=== PATIENT | male | born 1940 | race Caucasian/White ===

== ENCOUNTER 2019-07-16 19:28 | Observation (INO) | payer MEDICARE ==
[2019-07-16] MEDS ORDERED: Zofran 4 MG/2 ML VIAL IV ONE (19:57)
[2019-07-16] MEDS ORDERED: Sodium Chloride 0.9% 1000 ML 1,000 ML IV STA ×2 (19:57→22:29)
--- NOTE | 2019-07-16 19:57 | ERPHSYRPT ---
- History of Present Illness Time Seen by Provider: 07/16/19 19:35 Historian: patient, family Exam Limitations: no limitations Patient Subjective Stated Complaint: pt states he has been having diarrhea since last night. states he has been very weak tonight. Triage Nursing Assessment: pt alert and oreinted, answers questions approp. respirations nonlaboredw ith lungs cta. skin hot, warm and dry. pt transfers to strether with assist of 2, weak gait noted. bowel sounds present x4. abd soft and nontender. Physician History: 79 y/o white male presents with 24 hours of n/v/d. pt states several bouts of pure watery diarrhea every 2 hours for 24 hours. pt state he feels very weak. fell earlier today but did not injure anything. no other flulike sx. no cp, no soa. no sig abd pain. no other individuals with same sx. no well water or camping. no travel outside the . no antibiotic tx recently Timing/Duration: day(s) (1) Activities at Onset: none Quality: cramping (mild) Abdominal Pain Onset Location: generalized abdomen Pain Radiation: no radiation Severity of Pain-Max: mild Severity of Pain-Current: mild Modifying Factors: Improves With: vomiting Associated Symptoms: diarrhea, loss of appetite, nausea, vomiting, weakness Previous symptoms: no prior history Allergies/Adverse Reactions: No Known Drug Allergies Allergy (Verified 07/16/19 19:43) Home Medications: Triamterene/Hydrochlorothiazid [Triamterene-Hctz 37.5-25 mg Tb] 1 each PO DAILY 07/16/19 [History] Hx Tetanus, Diphtheria Vaccination/Date Given: Yes Hx Influenza Vaccination/Date Given: No Hx Pneumococcal Vaccination/Date Given: Yes Immunizations Up to Date: Yes - Review of Systems Constitutional: Weakness Eyes: No Symptoms Ears, Nose, & Throat: No Symptoms Respiratory: No Symptoms Cardiac: No Symptoms Abdominal/Gastrointestinal: Nausea, Vomiting, Diarrhea Genitourinary Symptoms: No Symptoms Musculoskeletal: No Symptoms Skin: No Symptoms Neurological: No Symptoms Psychological: No Symptoms Endocrine: No Symptoms Hematologic/Lymphatic: No Symptoms Immunological/Allergic: No Symptoms All Other Systems: Reviewed and Negative - Past Medical History Pertinent Past Medical History: Yes Neurological History: No Pertinent History ENT History: No Pertinent History Cardiac History: Hypertension Respiratory History: No Pertinent History Endocrine Medical History: No Pertinent History Musculoskeletal History: Arthritis GI Medical History: No Pertinent History History: No Pertinent History Psycho-Social History: No Pertinent History Male Reproductive Disorders: No Pertinent History - Past Surgical History Past Surgical History: No Neuro Surgical History: No Pertinent History Cardiac: No Pertinent History Respiratory: No Pertinent History Gastrointestinal: No Pertinent History Genitourinary: No Pertinent History Musculoskeletal: No Pertinent History Male Surgical History: No Pertinent History - Social History Smoking Status: Former smoker Exposure to second hand smoke: No Drug Use: none Patient Lives Alone: No - Nursing Vital Signs Nursing Vital Signs: Initial Vital Signs Temperature 100.2 F 07/16/19 19:31 Pulse Rate 112 H 07/16/19 19:31 Respiratory Rate 18 07/16/19 19:31 Blood Pressure 145/90 07/16/19 19:31 O2 Sat by Pulse Oximetry 92 L 07/16/19 19:31 Pain Scale Pain Intensity 0 - Physical Exam General Appearance: mild distress, alert, anxiety Eye Exam: PERRL/EOMI, eyes nml inspection Ears, Nose, Throat Exam: normal ENT inspection, moist mucous membranes Neck Exam: normal inspection, non-tender, supple, full range of motion Respiratory Exam: normal breath sounds, lungs clear, airway intact, No chest tenderness, No respiratory distress Cardiovascular Exam: tachycardia (mild) Gastrointestinal/Abdomen Exam: soft, normal bowel sounds, No tenderness, No guarding Rectal Exam: not done Back Exam: normal inspection, normal range of motion, No CVA tenderness, No vertebral tenderness Extremity Exam: normal inspection, normal range of motion, pelvis stable Neurologic Exam: alert, oriented x 3, cooperative, 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, nml cerebellar function, nml station & gait Skin Exam: normal color, warm, dry Lymphatic Exam: No adenopathy SpO2 Interpretation: borderline oxygenation SpO2: 92 - Course Nursing assessment & vital signs reviewed: Yes Ordered Tests: Active Orders 24 hr Category Date Time Status IV Insertion STAT Care 07/16/19 19:57 Active ABDOMEN AND PELVIS W/0 CONTRAS [CT] Stat Exams 07/16/19 19:57 Taken CHEST 1 VIEW (PORTABLE) Stat Exams 07/16/19 23:44 Ordered AMYLASE Stat Lab 07/16/19 20:00 Completed BLOOD CULTURE Stat Lab 07/16/19 21:16 Received CBC W DIFF Stat Lab 07/16/19 20:00 Completed CMP Stat Lab 07/16/19 20:00 Completed LIPASE Stat Lab 07/16/19 20:00 Completed Lactic Acid Stat Lab 07/16/19 20:15 Completed UA W/RFX UR CULTURE Stat Lab 07/17/19 00:00 Completed Medication Summary Generic Name Dose Route Start Last Admin Trade Name Jenni PRN Reason Stop Dose Admin Sodium Chloride 1,000 mls @ 100 mls/hr 07/17/19 00:15 07/17/19 00:16 Sodium Chloride 0.9% 1000 Ml IV 08/16/19 00:14 100 mls/hr .Q10H LEIDY Administration Discontinued Medications Generic Name Dose Route Start Last Admin Trade Name Jenni PRN Reason Stop Dose Admin Acetaminophen 650 mg 07/16/19 23:42 07/16/19 23:45 Tylenol 325 Mg PO 07/16/19 23:43 650 mg STAT STA Administration Acetaminophen Confirm 07/16/19 23:43 Tylenol 325 Mg Administered 07/16/19 23:44 Dose 650 mg .ROUTE .STK-MED ONE Sodium Chloride 1,000 mls @ 999 mls/hr 07/16/19 19:57 07/16/19 23:13 Sodium Chloride 0.9% 1000 Ml IV 07/16/19 20:57 Infused .Q1H1M STA Infusion Sodium Chloride Confirm 07/16/19 20:02 Sodium Chloride 0.9% 1000 Ml Administered 07/16/19 20:03 Dose 1,000 mls @ ud .ROUTE .STK-MED ONE Sodium Chloride 1,000 mls @ 999 mls/hr 07/16/19 22:29 07/17/19 00:22 Sodium Chloride 0.9% 1000 Ml IV 07/16/19 23:29 Infused .Q1H1M STA Infusion Sodium Chloride Confirm 07/16/19 22:30 Sodium Chloride 0.9% 1000 Ml Administered 07/16/19 22:31 Dose 1,000 mls @ ud .ROUTE .STK-MED ONE Ondansetron HCl 4 mg 07/16/19 19:57 07/16/19 20:05 Zofran 4 Mg/2 Ml Vial IV 07/16/19 19:58 4 mg STAT ONE Administration Ondansetron HCl Confirm 07/16/19 20:01 Zofran 4 Mg/2 Ml Vial Administered 07/16/19 20:02 Dose 4 mg .ROUTE .STK-MED ONE Lab/Rad Data: Laboratory Result Diagrams 07/16/19 20:00 07/16/19 20:00 Laboratory Results 07/17/19 07/16/19 07/16/19 Range/Units 00:00 21:16 20:15 WBC (4.0-10.5) K/mm3 RBC (4.1-5.6) M/mm3 Hgb (12.5-18.0) gm/dl Hct (42-50) % MCV (78-100) fl MCH (26-32) pg MCHC (32-36) g/dl RDW (11.5-14.0) % Plt Count (150-450) K/mm3 MPV (6-9.5) fl Gran % (36.0-66.0) % Eos # (Auto) (0-0.5) Absolute Lymphs (auto) (1.0-4.6) Absolute Monos (auto) (0.0-1.3) Lymphocytes % (24.0-44.0) % Monocytes % (0.0-12.0) % Eosinophils % (0.00-5.0) % Basophils % (0.0-0.4) % Absolute Granulocytes (1.4-6.9) Basophils # (0-0.4) Sodium (137-145) mmol/L Potassium (3.5-5.1) mmol/L Chloride (98-107) mmol/L Carbon Dioxide (22-30) mmol/L Anion Gap (5-15) MEQ/L BUN (9-20) mg/dL Creatinine (0.66-1.25) mg/dL Estimated GFR ML/MIN Glucose (74-106) mg/dL Lactic Acid 1.7 (0.4-2.0) Calcium (8.4-10.2) mg/dL Total Bilirubin (0.2-1.3) mg/dL AST (17-59) U/L ALT (0-50) U/L Alkaline Phosphatase (38-126) U/L Serum Total Protein (6.3-8.2) g/dL Albumin (3.5-5.0) g/dL Amylase (30-110) U/L Lipase (23-300) U/L Urine Color YELLOW (YELLOW) Urine Appearance CLEAR (CLEAR) Urine pH 5.0 (5-6) Ur Specific [place] 1.020 (1.005-1.025) Urine Protein NEGATIVE (Negative) Urine Ketones TRACE (NEGATIVE) Urine Blood NEGATIVE (0-5) Gustavo/ul Urine Nitrite NEGATIVE (NEGATIVE) Urine Bilirubin NEGATIVE (NEGATIVE) Urine Urobilinogen NEGATIVE (0-1) mg/dL Ur Leukocyte Esterase NEGATIVE (NEGATIVE) Urine WBC (Auto) NONE (0-5) /HPF Urine RBC (Auto) NONE (0-2) /HPF U Epithel Cells (Auto) NONE (FEW) /HPF Urine Bacteria (Auto) NONE (NEGATIVE) /HPF Urine Culture Reflexed NO (NO) Urine Glucose NEGATIVE (NEGATIVE) mg/dL Influenza Type A Ag NEGATIVE (NEGATIVE) Influenza Type B Ag NEGATIVE (NEGATIVE) RSV (PCR) NEGATIVE (Negative) 07/16/19 07/16/19 Range/Units 20:00 20:00 WBC 15.6 H (4.0-10.5) K/mm3 RBC 4.05 L (4.1-5.6) M/mm3 Hgb 13.4 (12.5-18.0) gm/dl Hct 39.7 L (42-50) % MCV 98.0 (78-100) fl MCH 33.0 H (26-32) pg MCHC 33.8 (32-36) g/dl RDW 12.6 (11.5-14.0) % Plt Count 214 (150-450) K/mm3 MPV 10.9 H (6-9.5) fl Gran % 91.0 H (36.0-66.0) % Eos # (Auto) 0.01 (0-0.5) Absolute Lymphs (auto) 0.69 L (1.0-4.6) Absolute Monos (auto) 0.68 (0.0-1.3) Lymphocytes % 4.4 L (24.0-44.0) % Monocytes % 4.4 (0.0-12.0) % Eosinophils % 0.1 (0.00-5.0) % Basophils % 0.1 (0.0-0.4) % Absolute Granulocytes 14.24 H (1.4-6.9) Basophils # 0.01 (0-0.4) Sodium 140 (137-145) mmol/L Potassium 3.6 (3.5-5.1) mmol/L Chloride 101 (98-107) mmol/L Carbon Dioxide 27 (22-30) mmol/L Anion Gap 15.5 H (5-15) MEQ/L BUN 24 H (9-20) mg/dL Creatinine 1.26 H (0.66-1.25) mg/dL Estimated GFR 58.8 ML/MIN Glucose 116 H (74-106) mg/dL Lactic Acid (0.4-2.0) Calcium 9.2 (8.4-10.2) mg/dL Total Bilirubin 0.50 (0.2-1.3) mg/dL AST 25 (17-59) U/L ALT 18 (0-50) U/L Alkaline Phosphatase 85 (38-126) U/L Serum Total Protein 7.6 (6.3-8.2) g/dL Albumin 4.2 (3.5-5.0) g/dL Amylase 68 (30-110) U/L Lipase 68 (23-300) U/L Urine Color (YELLOW) Urine Appearance (CLEAR) Urine pH (5-6) Ur Specific [place] (1.005-1.025) Urine Protein (Negative) Urine Ketones (NEGATIVE) Urine Blood (0-5) Gustavo/ul Urine Nitrite (NEGATIVE) Urine Bilirubin (NEGATIVE) Urine Urobilinogen (0-1) mg/dL Ur Leukocyte Esterase (NEGATIVE) Urine WBC (Auto) (0-5) /HPF Urine RBC (Auto) (0-2) /HPF U Epithel Cells (Auto) (FEW) /HPF Urine Bacteria (Auto) (NEGATIVE) /HPF Urine Culture Reflexed (NO) Urine Glucose (NEGATIVE) mg/dL Influenza Type A Ag (NEGATIVE) Influenza Type B Ag (NEGATIVE) RSV (PCR) (Negative) - Progress Progress: improved Progress Note: 07/17/19 00:46 cxr-no acute process Discussed with : Jass Counseled pt/family regarding: lab results, diagnosis, need for follow-up, rad results - Departure Departure Disposition: Observation Clinical Impression: Fever of unknown origin, Weakness, Vomiting and diarrhea Condition: Stable Critical Care Time: No
[2019-07-16] MEDS ORDERED: Zofran 4 MG/2 ML VIAL ONE (20:01)
[2019-07-16] MEDS ORDERED: Sodium Chloride 0.9% 1000 ML 1,000 ML ONE ×2 (20:02→22:30)
[2019-07-16 20:19] LABS: Absolute Neutrophil Ct (ANC) 14.24 (1.4-6.9); BASOPHIL % 0.1 % (0.0-0.4); Basophil (Absolute #) 0.01 (0-0.4); Eosinophil % 0.1 % (0.00-5.0); Eosinophil (Absolute #) 0.01 (0-0.5); Hematocrit 39.7 % (42-50); Hemoglobin 13.4 gm/dl (12.5-18.0); Lymphocyte (Absolute #) 0.69 (1.0-4.6); Lymphocytes % 4.4 % (24.0-44.0); Mean Corpuscular Hgb Concent. 33.8 g/dl (32-36); Mean Platelet Volume 10.9 fl (6-9.5); Monocyte (Absolute #) 0.68 (0.0-1.3); Monocytes % 4.4 % (0.0-12.0); Platelet Count 214 K/mm3 (150-450); Red Blood Count 4.05 M/mm3 (4.1-5.6); Red Cell Distribution Width 12.6 % (11.5-14.0); White Blood Count 15.6 K/mm3 (4.0-10.5)
[2019-07-16 20:32] LABS: ALBUMIN 4.2 g/dL (3.5-5.0); ANION GAP 15.5 MEQ/L (5-15); BILIRUBIN,TOTAL 0.5 mg/dL (0.2-1.3); Calcium 9.2 mg/dL (8.4-10.2); Creatinine 1 1.26 mg/dL (0.66-1.25); Potassium 3.6 mmol/L (3.5-5.1); Total Protein 7.6 g/dL (6.3-8.2)
[2019-07-16 22:03] LABS: INFLUENZA A NEGATIVE (NEGATIVE); INFLUENZA B NEGATIVE (NEGATIVE); RESPIRATORY SYNCTIAL VIRUS NEGATIVE (Negative)
[2019-07-16] MEDS ORDERED: TYLENOL 325 MG PO STA (23:42)
[2019-07-16] MEDS ORDERED: TYLENOL 325 MG ONE (23:43)
[2019-07-17] MEDS ORDERED: Sodium Chloride 0.9% 1000 ML 1,000 ML ONE (00:14)
[2019-07-17] MEDS ORDERED: Sodium Chloride 0.9% 1000 ML 1,000 ML IV SCH (00:15)
[2019-07-17 00:31] LABS: Appearance CLEAR (CLEAR); Bilirubin NEGATIVE (NEGATIVE); Blood NEGATIVE Ery/ul (0-5); Glucose NEGATIVE (NEGATIVE); Ketones TRACE (NEGATIVE); Leukocyte Esterase NEGATIVE (NEGATIVE); Nitrite NEGATIVE (NEGATIVE); Protein,Urine Dip NEGATIVE (Negative); Urobilinogen NEGATIVE mg/dL (0-1)
[2019-07-17] MEDS ORDERED: MOTRIN 400 MG PO ONE (00:48)
[2019-07-17] MEDS ORDERED: Sodium Chloride 0.9% 100 ML IVPB 100 ML IV ONE (01:00)
[2019-07-17] MEDS ORDERED: Merrem 1 GM IV ONE (01:00)
[2019-07-17] MEDS ORDERED: MOTRIN 400 MG ONE (01:00)
[2019-07-17] MEDS ORDERED: Merrem 1 GM 1 G in Sodium Chloride 100ML MINI-BAG PLUS 100 ML IV STA (01:29)
[2019-07-17] MEDS ORDERED: Zofran 4 MG/2 ML VIAL IV PRN (01:29)
[2019-07-17] MEDS ORDERED: TYLENOL 325 MG PO PRN (01:29)
[2019-07-17 04:04] LABS: Adenovirus F 40/41 NEGATIVE (NEGATIVE); Astrovirus NEGATIVE (NEGATIVE); C. Difficile Organism NEGATIVE (NEGATIVE); Campylobacter POSITIVE (NEGATIVE); Cryptosporidium NEGATIVE (NEGATIVE); Cyclospora cayentanensis NEGATIVE (NEGATIVE); Entamoeaba histolytica NEGATIVE (NEGATIVE); Enteroaggregative E.coli NEGATIVE (NEGATIVE); Enteropathogenic E.coli NEGATIVE (NEGATIVE); Enterotoxigenic E.coli NEGATIVE (NEGATIVE); Giardia lamblia NEGATIVE (NEGATIVE); Norovirus GI/GII NEGATIVE (NEGATIVE); Plesiomonas shigelloides NEGATIVE (NEGATIVE); Rotavirus A NEGATIVE (NEGATIVE); Salmonella NEGATIVE (NEGATIVE); Sapovirus NEGATIVE (NEGATIVE); Shiga-like toxin prod.E.coli NEGATIVE (NEGATIVE); Vibrio NEGATIVE (NEGATIVE); Vibrio cholerae NEGATIVE (NEGATIVE); Yersinia enterocolitica NEGATIVE (NEGATIVE)
[2019-07-17 04:32] LABS: Absolute Neutrophil Ct (ANC) 10.43 (1.4-6.9); BASOPHIL % 0.1 % (0.0-0.4); Basophil (Absolute #) 0.01 (0-0.4); Eosinophil (Absolute #) 0 (0-0.5); Hematocrit 35.3 % (42-50); Lymphocyte (Absolute #) 1.01 (1.0-4.6); Lymphocytes % 8.5 % (24.0-44.0); Mean Cell Volume 99.4 fl (78-100); Mean Corpuscular Hemoglobin 33.8 pg (26-32); Mean Platelet Volume 10.4 fl (6-9.5); Monocyte (Absolute #) 0.48 (0.0-1.3); Neutrophil % 87.4 % (36.0-66.0); Platelet Count 174 K/mm3 (150-450); Red Blood Count 3.55 M/mm3 (4.1-5.6); Red Cell Distribution Width 12.8 % (11.5-14.0); White Blood Count 11.9 K/mm3 (4.0-10.5)
[2019-07-17 04:44] LABS: ANION GAP 11.9 MEQ/L (5-15); BLOOD UREA NITROGEN 19 mg/dL (9-20); CHLORIDE 104 mmol/L (98-107); Calcium 8.2 mg/dL (8.4-10.2); Carbon Dioxide 25 mmol/L (22-30); Creatinine 1 1.06 mg/dL (0.66-1.25); Glucose 96 mg/dL (74-106); Potassium 3.3 mmol/L (3.5-5.1); SODIUM 138 mmol/L (137-145)
[2019-07-17] MEDS ORDERED: MERREM 500MG 500 MG in Sodium Chloride 100ML MINI-BAG PLUS 100 ML IV SCH (06:00)
--- NOTE | 2019-07-17 08:43 | XRAY ---
Indication: Abdomen pain, fever, nausea, vomiting, and diarrhea. Multiple contiguous axial images obtained through the abdomen and pelvis without contrast as ordered. Comparison: None Lung bases demonstrates bibasilar atelectasis/scarring with left hemidiaphragm elevation. No infiltrate or effusion. Heart is not enlarged. Noncontrasted stomach and bowel loops appear nonobstructed. Normal appendix. Mild scattered descending and sigmoid diverticulosis. No free fluid/air. Mildly enlarged prostate gland impresses on the base of the urinary bladder. Remaining liver, gallbladder, pancreas, spleen, adrenal glands, kidneys, ureters, and bladder appear unremarkable for noncontrast exam. Mild scattered aortoiliac calcifications without AAA. 9 mm round left mid abdomen benign appearing calcification probably calcified granuloma. Osseous structures demonstrates osteopenia, moderate/advanced multilevel degenerative spondylosis, minimal remote appearing T12-L2 anterior wedging, double curvature thoracolumbar scoliosis, and mild degenerative changes of both hips. Small fatty left inguinal hernia. Impression: 1. Colonic diverticulosis without diverticulitis, enlarged prostate gland, small fatty left inguinal hernia, and chronic bony findings. 2. Remaining CT abdomen/pelvis without contrast exam is negative. CT DI 23.06
--- NOTE | 2019-07-17 08:45 | XRAY ---
Indication: Abdomen pain, nausea, vomiting, diarrhea, and fever. Comparison: None Portable apical lordotic chest mildly underinflated with CT proven left base atelectasis/scarring. Remaining lungs clear. Heart is not enlarged for AP portable technique. Bony thorax demonstrate osteopenia, mild scoliosis, and moderate/advanced degenerative changes including both shoulders. Impression: Nonacute chest with chronic features.
--- NOTE | 2019-07-17 08:46 | PCM.HP ---
History of Present Illness - Chief Complaint Chief Complaint: Fever of unknown origin History of Present Illness: is a 79 year old male pt of the DC who was admitted through the ER with about 24 hours of diarrhea. Vomited a few times. Subjective fever at home. In the ER his temp was up to 101.3. His WBC were 15.6. He was admitted on IV meropenem. He did have decreased urination at home. This morning he is feeling better. Has had some stools here. He did have one dark tarry stool this morning. Would like to eat something. - Review of Systems Constitutional: Fever, Weakness Abdominal/Gastrointestinal: Nausea, Vomiting, Diarrhea, Melena, Appetite Changes , No Abdominal Pain Psychological: No Anxiety, No Depression, No Suicidal Ideations, No Homicidal Ideations All Other Systems: Reviewed and Negative Medications & Allergies Home Medications: Home Medication List Triamterene/Hydrochlorothiazid [Triamterene-Hctz 37.5-25 mg Tb] 1 each PO DAILY 07/16/19 [History Confirmed 07/16/19] Allergies/Adverse Reactions: Allergies Allergy/AdvReac Type Severity Reaction Status Date / Time No Known Drug Allergies Allergy Verified 07/16/19 19:43 - Past Medical History Past Medical History: Yes Neurological History: No Pertinent History ENT History: No Pertinent History Cardiac History: Hypertension Respiratory History: No Pertinent History Endocrine Medical History: No Pertinent History Musculoskelatal History: Arthritis GI Medical History: No Pertinent History History: No Pertinent History Pyscho-Social History: No Pertinent History Male Reproductive Disorders: No Pertinent History - Past Surgical History Past Surgical History: No Neuro Surgical History: No Pertinent History Cardiac History: No Pertinent History Respiratory Surgery: No Pertinent History GI Surgical History: No Pertinent History Genitourinary Surgical Hx: No Pertinent History Musculskeletal Surgical Hx: No Pertinent History Male Surgical History: No Pertinent History - Social History Smoking Status: Former smoker Exposure to second hand smoke: No Alcohol: None Drug Use: none - Physical Exam Vital Signs: Vital Signs - 24 hr Temp Pulse Resp BP Pulse Ox 07/17/19 07:20 98.1 F 70 20 118/64 94 L 07/17/19 04:00 99.3 F 90 20 114/55 95 07/17/19 02:26 98.7 F 86 18 114/58 96 10/18/19 01:25 96 H 16 106/61 95 07/17/19 00:56 92 L 07/17/19 00:37 101.3 F 96 H 16 114/63 94 L 07/16/19 23:00 72 18 140/62 95 07/16/19 21:40 95 H 92 L 07/16/19 20:56 106 H 18 127/83 94 L 07/16/19 19:31 100.2 F 112 H 18 145/90 92 L Oxygen-Last 24 hours O2 Percentage 2 Liters = 28% O2 Percentage 2 Liters = 28% O2 Percentage 2 Liters = 28% Oxygen Flowrate (L/min)-RT 2 Oxygen Flowrate (L/min)-RT 2 General Appearance: no apparent distress, alert, obese Neurologic Exam: oriented x 3, cooperative Eye Exam: eyes nml inspection Ears, Nose, Throat Exam: moist mucous membranes Neck Exam: normal inspection, non-tender, No lymphadenopathy Respiratory Exam: normal breath sounds, lungs clear, No crackles/rales, No rhonchi, No wheezing Cardiovascular Exam: regular rate/rhythm, normal heart sounds, murmur (III/ sys murmur, best heard at R sternal border) Gastrointestinal/Abdomen Exam: soft, No normal bowel sounds (hyperactive), No tenderness, No distention, No mass, No guarding, No rebound Extremity Exam: normal inspection, No pedal edema, No swelling Skin Exam: normal color, warm, dry, No rash Results - Labs Lab/Micro Results: Lab Results-Last 24 Hours 07/16/19 07/16/19 07/16/19 Range/Units 20:00 20:00 20:15 WBC 15.6 H (4.0-10.5) K/mm3 RBC 4.05 L (4.1-5.6) M/mm3 Hgb 13.4 (12.5-18.0) gm/dl Hct 39.7 L (42-50) % MCV 98.0 (78-100) fl MCH 33.0 H (26-32) pg MCHC 33.8 (32-36) g/dl RDW 12.6 (11.5-14.0) % Plt Count 214 (150-450) K/mm3 MPV 10.9 H (6-9.5) fl Gran % 91.0 H (36.0-66.0) % Eos # (Auto) 0.01 (0-0.5) Absolute Lymphs (auto) 0.69 L (1.0-4.6) Absolute Monos (auto) 0.68 (0.0-1.3) Lymphocytes % 4.4 L (24.0-44.0) % Monocytes % 4.4 (0.0-12.0) % Eosinophils % 0.1 (0.00-5.0) % Basophils % 0.1 (0.0-0.4) % Absolute Granulocytes 14.24 H (1.4-6.9) Basophils # 0.01 (0-0.4) Sodium 140 (137-145) mmol/L Potassium 3.6 (3.5-5.1) mmol/L Chloride 101 (98-107) mmol/L Carbon Dioxide 27 (22-30) mmol/L Anion Gap 15.5 H (5-15) MEQ/L BUN 24 H (9-20) mg/dL Creatinine 1.26 H (0.66-1.25) mg/dL Estimated GFR 58.8 ML/MIN Glucose 116 H (74-106) mg/dL Lactic Acid 1.7 (0.4-2.0) Calcium 9.2 (8.4-10.2) mg/dL Total Bilirubin 0.50 (0.2-1.3) mg/dL AST 25 (17-59) U/L ALT 18 (0-50) U/L Alkaline Phosphatase 85 (38-126) U/L Serum Total Protein 7.6 (6.3-8.2) g/dL Albumin 4.2 (3.5-5.0) g/dL Amylase 68 (30-110) U/L Lipase 68 (23-300) U/L Urine Color (YELLOW) Urine Appearance (CLEAR) Urine pH (5-6) Ur Specific [place] (1.005-1.025) Urine Protein (Negative) Urine Ketones (NEGATIVE) Urine Blood (0-5) Gustavo/ul Urine Nitrite (NEGATIVE) Urine Bilirubin (NEGATIVE) Urine Urobilinogen (0-1) mg/dL Ur Leukocyte Esterase (NEGATIVE) Urine WBC (Auto) (0-5) /HPF Urine RBC (Auto) (0-2) /HPF U Epithel Cells (Auto) (FEW) /HPF Urine Bacteria (Auto) (NEGATIVE) /HPF Urine Culture Reflexed (NO) Urine Glucose (NEGATIVE) mg/dL Stool Occult Bld Scrn (NEGATIVE) Stl C. cayetanensis PCR (NEGATIVE) Stl Adenov F 40/41 PCR (NEGATIVE) Stool Astrovirus (PCR) (NEGATIVE) Stool Cryptosporidium PCR (NEGATIVE) Stool EPEC (PCR) (NEGATIVE) Stool EAEC (PCR) (NEGATIVE) Stl E. histolytica PCR (NEGATIVE) Stl P. shigelloides PCR (NEGATIVE) Stool Sapovirus (PCR) (NEGATIVE) St Y.enterocolitica PCR (NEGATIVE) Stool Vibrio (PCR) (NEGATIVE) Stl Vibrio cholerae PCR (NEGATIVE) Stl Norovirus GI/GII PCR (NEGATIVE) Campylobacter (PCR) (NEGATIVE) C. difficile (PCR) (NEGATIVE) Enterotoxigenic E. coli (NEGATIVE) E.coli Shiga Toxins (NEGATIVE) Giardia lamblia (NEGATIVE) Influenza Type A Ag (NEGATIVE) Influenza Type B Ag (NEGATIVE) RSV (PCR) (Negative) Rotavirus A (PCR) (NEGATIVE) Salmonella (PCR) (NEGATIVE) Shigella (PCR) (NEGATIVE) 07/16/19 07/17/19 07/17/19 Range/Units 21:16 00:00 00:00 WBC (4.0-10.5) K/mm3 RBC (4.1-5.6) M/mm3 Hgb (12.5-18.0) gm/dl Hct (42-50) % MCV (78-100) fl MCH (26-32) pg MCHC (32-36) g/dl RDW (11.5-14.0) % Plt Count (150-450) K/mm3 MPV (6-9.5) fl Gran % (36.0-66.0) % Eos # (Auto) (0-0.5) Absolute Lymphs (auto) (1.0-4.6) Absolute Monos (auto) (0.0-1.3) Lymphocytes % (24.0-44.0) % Monocytes % (0.0-12.0) % Eosinophils % (0.00-5.0) % Basophils % (0.0-0.4) % Absolute Granulocytes (1.4-6.9) Basophils # (0-0.4) Sodium (137-145) mmol/L Potassium (3.5-5.1) mmol/L Chloride (98-107) mmol/L Carbon Dioxide (22-30) mmol/L Anion Gap (5-15) MEQ/L BUN (9-20) mg/dL Creatinine (0.66-1.25) mg/dL Estimated GFR ML/MIN Glucose (74-106) mg/dL Lactic Acid (0.4-2.0) Calcium (8.4-10.2) mg/dL Total Bilirubin (0.2-1.3) mg/dL AST (17-59) U/L ALT (0-50) U/L Alkaline Phosphatase (38-126) U/L Serum Total Protein (6.3-8.2) g/dL Albumin (3.5-5.0) g/dL Amylase (30-110) U/L Lipase (23-300) U/L Urine Color YELLOW (YELLOW) Urine Appearance CLEAR (CLEAR) Urine pH 5.0 (5-6) Ur Specific [place] 1.020 (1.005-1.025) Urine Protein NEGATIVE (Negative) Urine Ketones TRACE (NEGATIVE) Urine Blood NEGATIVE (0-5) Gustavo/ul Urine Nitrite NEGATIVE (NEGATIVE) Urine Bilirubin NEGATIVE (NEGATIVE) Urine Urobilinogen NEGATIVE (0-1) mg/dL Ur Leukocyte Esterase NEGATIVE (NEGATIVE) Urine WBC (Auto) NONE (0-5) /HPF Urine RBC (Auto) NONE (0-2) /HPF U Epithel Cells (Auto) NONE (FEW) /HPF Urine Bacteria (Auto) NONE (NEGATIVE) /HPF Urine Culture Reflexed NO (NO) Urine Glucose NEGATIVE (NEGATIVE) mg/dL Stool Occult Bld Scrn (NEGATIVE) Stl C. cayetanensis PCR NEGATIVE (NEGATIVE) Stl Adenov F 40/41 PCR NEGATIVE (NEGATIVE) Stool Astrovirus (PCR) NEGATIVE (NEGATIVE) Stool Cryptosporidium PCR NEGATIVE (NEGATIVE) Stool EPEC (PCR) NEGATIVE (NEGATIVE) Stool EAEC (PCR) NEGATIVE (NEGATIVE) Stl E. histolytica PCR NEGATIVE (NEGATIVE) Stl P. shigelloides PCR NEGATIVE (NEGATIVE) Stool Sapovirus (PCR) NEGATIVE (NEGATIVE) St Y.enterocolitica PCR NEGATIVE (NEGATIVE) Stool Vibrio (PCR) NEGATIVE (NEGATIVE) Stl Vibrio cholerae PCR NEGATIVE (NEGATIVE) Stl Norovirus GI/GII PCR NEGATIVE (NEGATIVE) Campylobacter (PCR) POSITIVE A (NEGATIVE) C. difficile (PCR) NEGATIVE (NEGATIVE) Enterotoxigenic E. coli NEGATIVE (NEGATIVE) E.coli Shiga Toxins NEGATIVE (NEGATIVE) Giardia lamblia NEGATIVE (NEGATIVE) Influenza Type A Ag NEGATIVE (NEGATIVE) Influenza Type B Ag NEGATIVE (NEGATIVE) RSV (PCR) NEGATIVE (Negative) Rotavirus A (PCR) NEGATIVE (NEGATIVE) Salmonella (PCR) NEGATIVE (NEGATIVE) Shigella (PCR) NEGATIVE (NEGATIVE) 07/17/19 07/17/19 07/17/19 Range/Units 02:13 04:30 04:30 WBC 11.9 H (4.0-10.5) K/mm3 RBC 3.55 L (4.1-5.6) M/mm3 Hgb 12.0 L (12.5-18.0) gm/dl Hct 35.3 L (42-50) % MCV 99.4 (78-100) fl MCH 33.8 H (26-32) pg MCHC 34.0 (32-36) g/dl RDW 12.8 (11.5-14.0) % Plt Count 174 (150-450) K/mm3 MPV 10.4 H (6-9.5) fl Gran % 87.4 H (36.0-66.0) % Eos # (Auto) 0 (0-0.5) Absolute Lymphs (auto) 1.01 (1.0-4.6) Absolute Monos (auto) 0.48 (0.0-1.3) Lymphocytes % 8.5 L (24.0-44.0) % Monocytes % 4.0 (0.0-12.0) % Eosinophils % 0.0 (0.00-5.0) % Basophils % 0.1 (0.0-0.4) % Absolute Granulocytes 10.43 H (1.4-6.9) Basophils # 0.01 (0-0.4) Sodium 138 (137-145) mmol/L Potassium 3.3 L (3.5-5.1) mmol/L Chloride 104 (98-107) mmol/L Carbon Dioxide 25 (22-30) mmol/L Anion Gap 11.9 (5-15) MEQ/L BUN 19 (9-20) mg/dL Creatinine 1.06 (0.66-1.25) mg/dL Estimated GFR > 60.0 ML/MIN Glucose 96 (74-106) mg/dL Lactic Acid (0.4-2.0) Calcium 8.2 L (8.4-10.2) mg/dL Total Bilirubin (0.2-1.3) mg/dL AST (17-59) U/L ALT (0-50) U/L Alkaline Phosphatase (38-126) U/L Serum Total Protein (6.3-8.2) g/dL Albumin (3.5-5.0) g/dL Amylase (30-110) U/L Lipase (23-300) U/L Urine Color (YELLOW) Urine Appearance (CLEAR) Urine pH (5-6) Ur Specific [place] (1.005-1.025) Urine Protein (Negative) Urine Ketones (NEGATIVE) Urine Blood (0-5) Gustavo/ul Urine Nitrite (NEGATIVE) Urine Bilirubin (NEGATIVE) Urine Urobilinogen (0-1) mg/dL Ur Leukocyte Esterase (NEGATIVE) Urine WBC (Auto) (0-5) /HPF Urine RBC (Auto) (0-2) /HPF U Epithel Cells (Auto) (FEW) /HPF Urine Bacteria (Auto) (NEGATIVE) /HPF Urine Culture Reflexed (NO) Urine Glucose (NEGATIVE) mg/dL Stool Occult Bld Scrn NEGATIVE (NEGATIVE) Stl C. cayetanensis PCR (NEGATIVE) Stl Adenov F 40/41 PCR (NEGATIVE) Stool Astrovirus (PCR) (NEGATIVE) Stool Cryptosporidium PCR (NEGATIVE) Stool EPEC (PCR) (NEGATIVE) Stool EAEC (PCR) (NEGATIVE) Stl E. histolytica PCR (NEGATIVE) Stl P. shigelloides PCR (NEGATIVE) Stool Sapovirus (PCR) (NEGATIVE) St Y.enterocolitica PCR (NEGATIVE) Stool Vibrio (PCR) (NEGATIVE) Stl Vibrio cholerae PCR (NEGATIVE) Stl Norovirus GI/GII PCR (NEGATIVE) Campylobacter (PCR) (NEGATIVE) C. difficile (PCR) (NEGATIVE) Enterotoxigenic E. coli (NEGATIVE) E.coli Shiga Toxins (NEGATIVE) Giardia lamblia (NEGATIVE) Influenza Type A Ag (NEGATIVE) Influenza Type B Ag (NEGATIVE) RSV (PCR) (Negative) Rotavirus A (PCR) (NEGATIVE) Salmonella (PCR) (NEGATIVE) Shigella (PCR) (NEGATIVE) - Radiology Impressions Radiology Exams & Impressions: Radiology Procedures Category Date Time Status ABDOMEN AND PELVIS W/0 CONTRAS [CT] Stat Exams 07/16/19 19:57 Taken CHEST 1 VIEW (PORTABLE) Stat Exams 07/16/19 23:44 Taken Assessment/Plan (1) Campylobacter diarrhea Current Visit: Yes Status: Acute Assessment & Plan: Pt on IV meropenem. Try advancing diet. Some blood in the stool can be common , but advised pt to alert staff if the amount seemed large. Recheck labs in a.m. Home when afebrile >24 hours and tolerating po well. Code(s): A04.5 - CAMPYLOBACTER ENTERITIS
[2019-07-17] MEDS: Sodium Chloride 0.9% 1000 ML 1,000 ML IV SCH ×2 (08:47→20:34)
[2019-07-17] MEDS: MERREM 500MG 500 MG in Sodium Chloride 100ML MINI-BAG PLUS 100 ML IV SCH ×3 (09:19→21:23)
[2019-07-17] MEDS: Klor Con 10 MEQ PO SCH ×2 (09:19→20:34)
[2019-07-17] MEDS: Robaxin 500 MG PO SCH (21:21)
[2019-07-17] MEDS: ZOCOR 20MG PO SCH (21:22)
[2019-07-17] MEDS ORDERED: celeBREX 100 MG PO SCH (22:00)
[2019-07-18 05:44] LABS: Hemoglobin 11.9 gm/dl (12.5-18.0); Mean Cell Volume 100.3 fl (78-100); Mean Corpuscular Hemoglobin 33.1 pg (26-32); Mean Corpuscular Hgb Concent. 33.1 g/dl (32-36); Mean Platelet Volume 10.5 fl (6-9.5); Platelet Count 165 K/mm3 (150-450); Red Blood Count 3.59 M/mm3 (4.1-5.6); White Blood Count 9.5 K/mm3 (4.0-10.5)
[2019-07-18 06:05] LABS: ANION GAP 9.4 MEQ/L (5-15); BLOOD UREA NITROGEN 12 mg/dL (9-20); CHLORIDE 106 mmol/L (98-107); Calcium 8.5 mg/dL (8.4-10.2); Carbon Dioxide 29 mmol/L (22-30); Glucose 98 mg/dL (74-106); Potassium 3.7 mmol/L (3.5-5.1); SODIUM 140 mmol/L (137-145)
[2019-07-18] MEDS: MERREM 500MG 500 MG in Sodium Chloride 100ML MINI-BAG PLUS 100 ML IV SCH ×3 (06:25→21:13)
[2019-07-18] MEDS: celeBREX 100 MG PO SCH ×2 (08:31→18:22)
[2019-07-18] MEDS: Klor Con 10 MEQ PO SCH ×2 (09:21→21:11)
--- NOTE | 2019-07-18 09:59 | PCM.NOTE ---
Date and Time: 07/18/19957 Subjective Assessment: patient has persistent diarrhea but improving, no vomiting since arrival. he tolerated some bland diet this morning, overall feeling improved Objective Exam General Appearance: no apparent distress, alert Skin Exam: normal color, warm, dry Respiratory Exam: normal breath sounds, lungs clear, No respiratory distress Cardiovascular Exam: regular rate/rhythm, normal heart sounds Gastrointestinal/Abdomen Exam: soft, No tenderness, No mass Extremity Exam: normal inspection, normal range of motion OBJECTIVE DATA Vital Signs: Vital Signs - 24 hr Temp Pulse Resp BP Pulse Ox 07/18/19 07:14 98.6 F 81 18 170/80 96 07/18/19 04:00 98.7 F 86 16 136/72 96 07/18/19 00:00 97.8 F 80 16 144/73 93 L 07/17/19 20:00 100.0 F 96 H 16 148/67 94 L 07/17/19 15:34 98.3 F 78 20 124/68 95 07/17/19 12:20 98.2 F 73 18 129/66 94 L Pain Assessment - Last Documented Pain Intensity 0 Pain Scale Used 0-10 Pain Scale Intake and Output: Intake & Output 07/15/19 07/16/19 07/17/19 07/18/19 11:59 11:59 11:59 11:59 Intake Total 480 5617 Output Total 400 Balance 480 5217 Weight 92.2 kg 92 kg Lab Results: Lab Results-Last 24 Hours 07/18/19 07/18/19 Range/Units 05:25 05:25 WBC 9.5 (4.0-10.5) K/mm3 RBC 3.59 L (4.1-5.6) M/mm3 Hgb 11.9 L (12.5-18.0) gm/dl Hct 36.0 L (42-50) % MCV 100.3 H (78-100) fl MCH 33.1 H (26-32) pg MCHC 33.1 (32-36) g/dl RDW 13.0 (11.5-14.0) % Plt Count 165 (150-450) K/mm3 MPV 10.5 H (6-9.5) fl Sodium 140 (137-145) mmol/L Potassium 3.7 (3.5-5.1) mmol/L Chloride 106 (98-107) mmol/L Carbon Dioxide 29 (22-30) mmol/L Anion Gap 9.4 (5-15) MEQ/L BUN 12 (9-20) mg/dL Creatinine 0.90 (0.66-1.25) mg/dL Estimated GFR > 60.0 ML/MIN Glucose 98 (74-106) mg/dL Calcium 8.5 (8.4-10.2) mg/dL Radiology Exams: Radiology Procedures Category Date Time Status ABDOMEN AND PELVIS W/0 CONTRAS [CT] Stat Exams 07/16/19 19:57 Completed CHEST 1 VIEW (PORTABLE) Stat Exams 07/16/19 23:44 Completed Assessment/Plan (1) Campylobacter diarrhea Current Visit: Yes Status: Acute Assessment & Plan: on meropenem, clinically improving. h/h stable Code(s): A04.5 - CAMPYLOBACTER ENTERITIS (2) Vomiting and diarrhea Current Visit: Yes Status: Acute Code(s): R11.10 - VOMITING, UNSPECIFIED; R19.7 - DIARRHEA, UNSPECIFIED (3) Weakness Current Visit: Yes Status: Acute Code(s): R53.1 - WEAKNESS
[2019-07-18] MEDS ORDERED: Maxzide-25MG Tablet PO SCH (10:00)
[2019-07-18] MEDS: Sodium Chloride 0.9% 1000 ML 1,000 ML IV SCH (15:26)
[2019-07-18] MEDS: ZOCOR 20MG PO SCH (21:11)
[2019-07-18] MEDS: Robaxin 500 MG PO SCH (21:11)
[2019-07-19] MEDS: Sodium Chloride 0.9% 1000 ML 1,000 ML IV SCH (01:20)
[2019-07-19 06:05] LABS: Absolute Neutrophil Ct (ANC) 4.52 (1.4-6.9); BASOPHIL % 0.3 % (0.0-0.4); Basophil (Absolute #) 0.02 (0-0.4); Eosinophil % 2.5 % (0.00-5.0); Eosinophil (Absolute #) 0.18 (0-0.5); Hematocrit 34.9 % (42-50); Hemoglobin 11.7 gm/dl (12.5-18.0); Lymphocyte (Absolute #) 1.71 (1.0-4.6); Lymphocytes % 23.5 % (24.0-44.0); Mean Cell Volume 97.8 fl (78-100); Mean Corpuscular Hgb Concent. 33.5 g/dl (32-36); Monocyte (Absolute #) 0.86 (0.0-1.3); Monocytes % 11.8 % (0.0-12.0); Neutrophil % 61.9 % (36.0-66.0); Platelet Count 170 K/mm3 (150-450); Red Blood Count 3.57 M/mm3 (4.1-5.6); Red Cell Distribution Width 12.5 % (11.5-14.0); White Blood Count 7.3 K/mm3 (4.0-10.5)
[2019-07-19 06:09] LABS: Mean Corpuscular Hemoglobin 32.7 pg (26-32)
[2019-07-19] MEDS: MERREM 500MG 500 MG in Sodium Chloride 100ML MINI-BAG PLUS 100 ML IV SCH (06:10)
[2019-07-19 06:23] LABS: ALBUMIN 3.3 g/dL (3.5-5.0); ALKALINE PHOSPHATASE 65 U/L (38-126); ANION GAP 12.4 MEQ/L (5-15); BLOOD UREA NITROGEN 11 mg/dL (9-20); CHLORIDE 104 mmol/L (98-107); Calcium 8.6 mg/dL (8.4-10.2); Carbon Dioxide 26 mmol/L (22-30); Creatinine 1 0.76 mg/dL (0.66-1.25); Glucose 93 mg/dL (74-106); Potassium 3.7 mmol/L (3.5-5.1); SGOT/AST 28 U/L (17-59); SGPT/ALT 16 U/L (0-50); SODIUM 139 mmol/L (137-145); Total Protein 6.3 g/dL (6.3-8.2)
[2019-07-19] MEDS: celeBREX 100 MG PO SCH (07:40)
[2019-07-19 07:42] VITALS: BP 147/72; PULSE 78; O2SAT 94
--- NOTE | 2019-07-19 08:36 | PCM.DS ---
Discharge Summary Date of Admission: 07/17/19 01:27 Admitting Physician: MARY BARBOSA Primary Care Provider: MARY BARBOSA Allergies Allergies No Known Drug Allergies Allergy (Verified 07/16/19 19:43) Hospital Summary - Hospital Course Hospital Course: patient was admitted with vomiting, diarrhea and weakness with fever. found to have campylobacter in stool specimen, was on meropenem. symptoms have resolved, he is tolerating po and no fever and vomiting and diarrhea have resolved. - Vitals & Intake/Output Vital Signs: Vital Signs Temperature 98.9 F 07/19/19 07:41 Pulse Rate 78 07/19/19 07:41 Respiratory Rate 18 07/19/19 07:41 Blood Pressure 147/72 07/19/19 07:41 O2 Sat by Pulse Oximetry 94 L 07/19/19 07:41 Oxygen-Last Documented O2 Percentage 2 Liters = 28% Intake & Output: Intake & Output 07/16/19 07/17/19 07/18/19 07/19/19 11:59 11:59 11:59 11:59 Intake Total 480 5610 2652 Output Total 400 Balance 480 5217 2652 Weight 92.2 kg 92 kg 91.8 kg - Lab Result Diagrams: 07/19/19 05:20 07/19/19 05:20 Lab Results-Last 24 Hrs: Lab Results-Last 24 Hours 07/19/19 07/19/19 Range/Units 05:20 05:20 WBC 7.3 (4.0-10.5) K/mm3 RBC 3.57 L (4.1-5.6) M/mm3 Hgb 11.7 L (12.5-18.0) gm/dl Hct 34.9 L (42-50) % MCV 97.8 (78-100) fl MCH 32.7 H (26-32) pg MCHC 33.5 (32-36) g/dl RDW 12.5 (11.5-14.0) % Plt Count 170 (150-450) K/mm3 MPV 11.0 H (6-9.5) fl Gran % 61.9 (36.0-66.0) % Eos # (Auto) 0.18 (0-0.5) Absolute Lymphs (auto) 1.71 (1.0-4.6) Absolute Monos (auto) 0.86 (0.0-1.3) Lymphocytes % 23.5 L (24.0-44.0) % Monocytes % 11.8 (0.0-12.0) % Eosinophils % 2.5 (0.00-5.0) % Basophils % 0.3 (0.0-0.4) % Absolute Granulocytes 4.52 (1.4-6.9) Basophils # 0.02 (0-0.4) Sodium 139 (137-145) mmol/L Potassium 3.7 (3.5-5.1) mmol/L Chloride 104 (98-107) mmol/L Carbon Dioxide 26 (22-30) mmol/L Anion Gap 12.4 (5-15) MEQ/L BUN 11 (9-20) mg/dL Creatinine 0.76 (0.66-1.25) mg/dL Estimated GFR > 60.0 ML/MIN Glucose 93 (74-106) mg/dL Calcium 8.6 (8.4-10.2) mg/dL Total Bilirubin 0.30 (0.2-1.3) mg/dL AST 28 (17-59) U/L ALT 16 (0-50) U/L Alkaline Phosphatase 65 (38-126) U/L Serum Total Protein 6.3 (6.3-8.2) g/dL Albumin 3.3 L (3.5-5.0) g/dL Micro Results-Entire Visit: Microbiology 07/16/19 21:16 Blood Culture - Preliminary Blood NO GROWTH TO DATE 07/16/19 21:16 Blood Culture - Preliminary Blood NO GROWTH TO DATE Discharge Exam General Appearance: no apparent distress, alert Respiratory Exam: normal breath sounds, lungs clear, No respiratory distress Cardiovascular Exam: regular rate/rhythm, normal heart sounds Gastrointestinal/Abdomen Exam: soft, No tenderness, No mass Extremity Exam: normal inspection, normal range of motion Skin Exam: normal color, warm, dry Final Diagnosis/Problem List - Final Discharge Diagnosis/Problem (1) Campylobacter diarrhea Current Visit: Yes Status: Acute Assessment & Plan: home on zithromax 500mg po daily x 3 days, push fluids Code(s): A04.5 - CAMPYLOBACTER ENTERITIS (2) Vomiting and diarrhea Current Visit: Yes Status: Acute Code(s): R11.10 - VOMITING, UNSPECIFIED; R19.7 - DIARRHEA, UNSPECIFIED (3) Weakness Current Visit: Yes Status: Acute Code(s): R53.1 - WEAKNESS - Discharge Disposition: Home, Self-Care Condition: Stable Prescriptions: New Azithromycin [Zithromax] 500 mg PO DAILY #3 tablet Continue Triamterene/Hydrochlorothiazid [Triamterene-Hctz 37.5-25 mg Tb] 1 each PO DAILY Methocarbamol 500 mg [Robaxin 500 MG] 750 mg PO HS Celecoxib 100 mg [celeBREX 100 MG] 200 mg PO BIDWMEALS Pravastatin Sodium 20 mg PO HS Follow up with: MARY BARBOSA [Primary Care Provider] - 1 Week
== END 2019-07-19 10:00 | disposition home or self-care (01) ==
LOC: ED 19:28 → MED SURG 07-17 01:27
PROVIDERS: ADMIT Family Medicine; ATTEND Family Medicine
DX: A04.5 Campylobacter enteritis (principal); R11.10 Vomiting, unspecified; R53.1 Weakness; Z79.899 Other long term (current) drug therapy
CPT/HCPCS: 36000; 36415; 71045; 74176; 80048; 80053; 81001; 82150; 82270; 83605; 83690; 85025; 85027; 87040; 87507; 87631; 96360; 96374; 99285; G0378; J2405; A9270-GY

== ENCOUNTER 2022-11-13 21:54 | Emergency (ER) | payer OTHER, MEDICARE ==
[2022-11-13] MEDS ORDERED: Zofran 4 MG/2 ML VIAL IV ONE (22:01)
--- NOTE | 2022-11-13 22:01 | ERPHSYRPT ---
- History of Present Illness Time Seen by Provider: 11/13/22 22:01 Source: patient, EMS Exam Limitations: no limitations Physician History: This is an 82-year-old white male brought to the emergency department by the paramedics via ambulance. Patient had been coughing for 2 days and then today he started bringing up phlegm with the cough. He was gagging at times. He did have an episode of vomiting after eating a meal this evening. He is unsure whether this was gagging up phlegm leading to vomiting or separate vomiting episode. Patient denies fever. He denies chills. He denies chest pain. He has no shortness of breath. He denies abdominal pain. He has had no diarrhea. He has no known exposures to individuals with similar symptoms or with a diagnosis of flus. Patient does have a history of hypertension, hyperlipidemia and arthritis Timing/Duration: today Severity: mild Associated Symptoms: vomiting (X1 prior to arrival), cough, No abdominal pain, No shortness of breath, No chest pain, No fever, No loss of appetite, No weakness Allergies/Adverse Reactions: No Known Drug Allergies Allergy (Verified 11/13/22 22:10) Home Medications: Triamterene/Hydrochlorothiazid [Triamterene-Hctz 37.5-25 mg Tb] 1 each PO DAILY 07/16/19 [History] Celecoxib 100 mg [celeBREX 100 MG] 200 mg PO BIDWMEALS 07/17/19 [History] Methocarbamol [Robaxin] 750 mg PO HS 07/17/19 [History] Pravastatin Sodium 20 mg PO HS 07/17/19 [History] Hx Tetanus, Diphtheria Vaccination/Date Given: Yes Hx Influenza Vaccination/Date Given: No Hx Pneumococcal Vaccination/Date Given: Yes Travel Risk - International Travel Have you traveled outside of the country in past 3 weeks: No - Coronavirus Screening Are you exhibiting any of the following symptoms?: Yes Symptoms: Cough: New Onset, Vomiting/Diarrhea Close contact with a COVID-19 positive Pt in past 14-21 Days: No - Review of Systems Constitutional: No Symptoms Eyes: Photophobia Ears, Nose, & Throat: No Symptoms Respiratory: Cough Cardiac: No Symptoms, No Chest Pain Abdominal/Gastrointestinal: Vomiting (X1), No Abdominal Pain, No Diarrhea Genitourinary Symptoms: No Symptoms Musculoskeletal: No Symptoms Skin: No Symptoms Neurological: No Symptoms Psychological: No Symptoms Endocrine: No Symptoms Hematologic/Lymphatic: No Symptoms Immunological/Allergic: No Symptoms All Other Systems: Reviewed and Negative - Past Medical History Pertinent Past Medical History: Yes Neurological History: No Pertinent History ENT History: No Pertinent History Cardiac History: Hypertension Respiratory History: No Pertinent History Endocrine Medical History: No Pertinent History Musculoskeletal History: Arthritis GI Medical History: No Pertinent History History: No Pertinent History Psycho-Social History: No Pertinent History Male Reproductive Disorders: No Pertinent History - Past Surgical History Past Surgical History: No Neuro Surgical History: No Pertinent History Cardiac: No Pertinent History Respiratory: No Pertinent History Gastrointestinal: No Pertinent History Genitourinary: No Pertinent History Musculoskeletal: No Pertinent History Male Surgical History: No Pertinent History - Social History Smoking Status: Former smoker Exposure to second hand smoke: No Drug Use: none Patient Lives Alone: No - Nursing Vital Signs Nursing Vital Signs: Initial Vital Signs Temperature 98.5 F 11/13/22 21:56 Pulse Rate 111 H 11/13/22 21:56 Respiratory Rate 20 11/13/22 21:56 Blood Pressure 145/87 11/13/22 21:56 O2 Sat by Pulse Oximetry 97 11/13/22 21:56 Pain Scale Pain Intensity 0 - Physical Exam General Appearance: no apparent distress, alert, anxiety, obese Eye Exam: PERRL/EOMI, eyes nml inspection Ears, Nose, Throat Exam: normal ENT inspection, moist mucous membranes Neck Exam: normal inspection, non-tender, supple, full range of motion Respiratory Exam: normal breath sounds, lungs clear, airway intact, No chest tenderness, No respiratory distress Cardiovascular Exam: regular rate/rhythm, normal heart sounds, normal peripheral pulses Gastrointestinal/Abdomen Exam: soft, normal bowel sounds, No tenderness Rectal Exam: not done Back Exam: normal inspection, normal range of motion, No CVA tenderness, No vertebral tenderness Extremity Exam: normal range of motion, pelvis stable, pedal edema (Bilateral feet and ankles) Neurologic Exam: alert, oriented x 3, cooperative, black studies professor II-XII nml as tested, normal mood/affect, nml cerebellar function, nml station & gait, sensation nml Skin Exam: normal color, warm, dry Lymphatic Exam: No adenopathy SpO2 Interpretation: normal O2 Delivery: Room Air - Course Nursing assessment & vital signs reviewed: Yes Ordered Tests: Active Orders 24 hr Category Date Time Status EKG-ER Only STAT Care 11/13/22 22:03 Active IV Insertion STAT Care 11/13/22 22:01 Active CHEST 1 VIEW (PORTABLE) Stat Exams 11/13/22 22:02 Taken CHEST WITH CONTRAST [CT] Stat Exams 11/13/22 23:42 Ordered CBC W DIFF Stat Lab 11/13/22 22:21 Completed CMP Stat Lab 11/13/22 22:21 Completed D-DIMER QUANTITATIVE Stat Lab 11/13/22 22:21 Completed NT PRO BNPII Stat Lab 11/13/22 22:21 Completed TROPONIN Q4H Lab 11/13/22 22:21 Completed TROPONIN Q4H Lab 11/14/22 02:15 Ordered TROPONIN Q4H Lab 11/14/22 06:15 Ordered UA W/RFX UR CULTURE Stat Lab 11/14/22 00:50 Completed Medication Summary Generic Name Dose Route Start Last Admin Trade Name Jenni PRN Reason Stop Dose Admin Methylprednisolone Sodium 0 mg 11/14/22 01:59 Succinate 125 mg/ Sterile IV 11/14/22 02:00 Water 2 ml STAT ONE Sodium Chloride 1,000 mls @ 100 mls/hr 11/13/22 22:15 11/13/22 22:07 Sodium Chloride 0.9% 1000 Ml IV 12/13/22 22:14 100 mls/hr .Q10H LEIDY Administration Ceftriaxone Sodium/Dextrose 1 g in 50 mls @ 100 mls/hr 11/14/22 01:59 Rocephin 1 Gm-D5w 50 Ml Bag IV 11/14/22 02:28 STAT STA Discontinued Medications Generic Name Dose Route Start Last Admin Trade Name Jenni PRN Reason Stop Dose Admin Ondansetron HCl 4 mg 11/13/22 22:01 11/13/22 22:07 Ondansetron Hcl 4 Mg/2 Ml Vial IV 11/13/22 22:02 4 mg STAT ONE Administration Ondansetron HCl Confirm 11/13/22 22:05 Ondansetron Hcl 4 Mg/2 Ml Vial Administered 11/13/22 22:06 Dose 4 mg .ROUTE .STK-MED ONE Lab/Rad Data: Laboratory Result Diagrams 11/13/22 22:21 11/13/22 22:21 Laboratory Results 11/14/22 11/13/22 11/13/22 Range/Units 00:50 22:21 22:21 WBC (4.0-10.5) x10^3/uL RBC (4.1-5.6) x10^6/uL Hgb (12.5-18.0) g/dL Hct (42-50) % MCV (78-100) fL MCH (26-32) pg MCHC (32-36) g/dL RDW (11.5-14.0) % Plt Count (150-450) x10^3/uL MPV (7.5-11.0) fL Gran % (36.0-66.0) % Immature Gran % (Auto) (0.00-0.4) % Nucleat RBC Rel Count (0.00-0.1) % Eos # (Auto) (0-0.5) x10^3/uL Immature Gran # (Auto) (0.00-0.03) x10^3u/L Absolute Lymphs (auto) (1.0-4.6) x10^3/uL Absolute Monos (auto) (0.0-1.3) x10^3/uL Absolute Nucleated RBC (0.00-0.01) x10^3u/L Lymphocytes % (24.0-44.0) % Monocytes % (0.0-12.0) % Eosinophils % (0.00-5.0) % Basophils % (0.0-0.4) % Absolute Granulocytes (1.4-6.9) x10^3/uL Basophils # (0-0.4) x10^3/uL D-Dimer 1.58 H* (0.0-0.50) mg/L Sodium (137-145) mmol/L Potassium (3.5-5.1) mmol/L Chloride (98-107) mmol/L Carbon Dioxide (22-30) mmol/L Anion Gap (5-15) MEQ/L BUN (9-20) mg/dL Creatinine (0.66-1.25) mg/dL Estimated GFR ML/MIN Glucose (74-106) mg/dL Calcium (8.4-10.2) mg/dL Total Bilirubin (0.2-1.3) mg/dL AST (17-59) U/L ALT (0-50) U/L Alkaline Phosphatase (38-126) U/L Troponin I (0.000-0.034) ng/mL NT-Pro-B Natriuret Pep (<300) pg/mL Serum Total Protein (6.3-8.2) g/dL Albumin (3.5-5.0) g/dL Urine Color Yellow (Yellow) Urine Appearance Clear (Clear) Urine pH 5.0 (4.6-8.0) Ur Specific Redfield >=1.030 A (1.005-1.030) Urine Protein Trace A (Negative) Urine Glucose (UA) Negative (Negative) mg/dL Urine Ketones Negative (Negative) Urine Blood Negative (Negative) Urine Nitrite Negative (Negative) Urine Bilirubin Negative (Negative) Urine Urobilinogen 1.0 A (0.2) mg/dL Ur Leukocyte Esterase Negative (Negative) U Hyaline Cast (Auto) NONE SEEN (0-2) /LPF Urine Microscopic RBC 0-2 (0-5) /HPF Urine Microscopic WBC 0-2 (0-5) /HPF Ur Epithelial Cells None Seen (None Seen) /HPF Urine Bacteria None Seen (None Seen) /HPF Urine Culture Reflexed NO (NO) Influenza Type A Ag NEGATIVE (NEGATIVE) Influenza Type B Ag NEGATIVE (NEGATIVE) RSV (PCR) NEGATIVE (Negative) SARS-CoV-2 (PCR) NEGATIVE (NEGATIVE) Slides for Path Review 11/13/22 11/13/22 11/13/22 Range/Units 22:21 22:21 22:21 WBC 6.7 (4.0-10.5) x10^3/uL RBC 4.27 (4.1-5.6) x10^6/uL Hgb 13.8 (12.5-18.0) g/dL Hct 41.8 L (42-50) % MCV 97.9 (78-100) fL MCH 32.3 H (26-32) pg MCHC 33.0 (32-36) g/dL RDW 12.6 (11.5-14.0) % Plt Count 192 (150-450) x10^3/uL MPV 10.3 (7.5-11.0) fL Gran % 84.5 H (36.0-66.0) % Immature Gran % (Auto) 0.3 (0.00-0.4) % Nucleat RBC Rel Count 0.0 (0.00-0.1) % Eos # (Auto) 0.03 (0-0.5) x10^3/uL Immature Gran # (Auto) 0.02 (0.00-0.03) x10^3u/L Absolute Lymphs (auto) 0.58 L (1.0-4.6) x10^3/uL Absolute Monos (auto) 0.39 (0.0-1.3) x10^3/uL Absolute Nucleated RBC 0.00 (0.00-0.01) x10^3u/L Lymphocytes % 8.7 L (24.0-44.0) % Monocytes % 5.8 (0.0-12.0) % Eosinophils % 0.4 (0.00-5.0) % Basophils % 0.3 (0.0-0.4) % Absolute Granulocytes 5.66 (1.4-6.9) x10^3/uL Basophils # 0.02 (0-0.4) x10^3/uL D-Dimer (0.0-0.50) mg/L Sodium 134 L (137-145) mmol/L Potassium 4.0 (3.5-5.1) mmol/L Chloride 99 (98-107) mmol/L Carbon Dioxide 29 (22-30) mmol/L Anion Gap 10.1 (5-15) MEQ/L BUN 24 H (9-20) mg/dL Creatinine 1.00 (0.66-1.25) mg/dL Estimated GFR > 60.0 ML/MIN Glucose 124 H (74-106) mg/dL Calcium 8.2 L (8.4-10.2) mg/dL Total Bilirubin 0.50 (0.2-1.3) mg/dL AST 31 (17-59) U/L ALT 22 (0-50) U/L Alkaline Phosphatase 86 (38-126) U/L Troponin I < 0.012 (0.000-0.034) ng/mL NT-Pro-B Natriuret Pep 158 (<300) pg/mL Serum Total Protein 7.8 (6.3-8.2) g/dL Albumin 4.2 (3.5-5.0) g/dL Urine Color (Yellow) Urine Appearance (Clear) Urine pH (4.6-8.0) Ur Specific Redfield (1.005-1.030) Urine Protein (Negative) Urine Glucose (UA) (Negative) mg/dL Urine Ketones (Negative) Urine Blood (Negative) Urine Nitrite (Negative) Urine Bilirubin (Negative) Urine Urobilinogen (0.2) mg/dL Ur Leukocyte Esterase (Negative) U Hyaline Cast (Auto) (0-2) /LPF Urine Microscopic RBC (0-5) /HPF Urine Microscopic WBC (0-5) /HPF Ur Epithelial Cells (None Seen) /HPF Urine Bacteria (None Seen) /HPF Urine Culture Reflexed (NO) Influenza Type A Ag (NEGATIVE) Influenza Type B Ag (NEGATIVE) RSV (PCR) (Negative) SARS-CoV-2 (PCR) (NEGATIVE) Slides for Path Review YES - Progress Progress: improved, re-examined Progress Note: 11/14/22 02:01 Chest x-ray was interpreted by me and there is no evidence of any acute cardiopulmonary process. CTA of chest final impression was reviewed by me. It was read by the radiologist. There is no evidence of any acute cardiopulmonary process or infiltrate. There is no evidence of pulmonary emboli. This patient's medical issue is of moderate complexity. This is based on the patient's complaint, history from the patient, additional history from the paramedics and patient's daughter and from the physical findings on physical examination. This led me to order chest x-ray, twelve-lead EKG, viral studies, laboratory data including blood and urinalysis. The results were reviewed by me. D-dimer was elevated and therefore I ordered a CTA of the chest and the above-stated findings were noted. I reviewed these findings with the patient and the patient's daughter. Patient has upper respiratory infection and cough. We will provide the patient with intravenous antibiotics, intravenous steroids and provide a prescription of oral products of the same class and an antitussive agent of Tessalon Perles. The discharge plan was formulated by me and discussed with the patient and the patient's family member. He will also follow-up with his primary care physician for further evaluation management Counseled pt/family regarding: lab results, diagnosis, need for follow-up, rad results Medical Desision Making - Independent Historian Additional History obtained from: Family - External Record(s) Reviewed Records reviewed as a part of evaluation & management: EMS - Discussion of managment Reviewed:: Test results Agreed on:: Treatment plan, need for follow-up - Diagnostic Testing Diagnostic Testing: Diagnostic tests were ordered,analyzed, and reviewed by me and used in my medical decision making for this patient. Radiologic studies (if ordered) were read by me initially then discussed with the radiologist . - Risk of complications Low Risk: Low risk of morbidity from additional dx testing or treatment - Departure Departure Disposition: Home Clinical Impression: Upper respiratory infection Condition: Stable Critical Care Time: No Referrals: MARY ANDREWS [ACTIVE STAFF] - Follow up/PCP as directed Additional Instructions: Drink plenty fluids. Take your medication as prescribed. Follow-up with your primary care physician for further evaluation management. Prescriptions: Benzonatate 200 mg PO TID PRN #10 cap PRN Reason: Cough Prednisone 10 mg [Deltasone 10 mg] 10 mg PO TID #12 tablet Azithromycin 250 mg [Zithromax 250 MG TABLET] 250 mg PO ZPACK #6 tablet
[2022-11-13] MEDS ORDERED: Zofran 4 MG/2 ML VIAL ONE (22:05)
[2022-11-13] MEDS ORDERED: Sodium Chloride 0.9% 1000 ML 1,000 ML ONE (22:05)
[2022-11-13] MEDS ORDERED: Sodium Chloride 0.9% 1000 ML 1,000 ML IV SCH (22:15)
[2022-11-13 22:26] LABS: Absolute Neutrophil Ct (ANC) 5.66 x10^3/uL (1.4-6.9); BASOPHIL % 0.3 % (0.0-0.4); Basophil (Absolute #) 0.02 x10^3/uL (0-0.4); Eosinophil % 0.4 % (0.00-5.0); Eosinophil (Absolute #) 0.03 x10^3/uL (0-0.5); Hematocrit 41.8 % (42-50); Hemoglobin 13.8 g/dL (12.5-18.0); IMMATURE GRAN # 0.02 x10^3u/L (0.00-0.03); IMMATURE GRAN % 0.3 % (0.00-0.4); Lymphocyte (Absolute #) 0.58 x10^3/uL (1.0-4.6); Lymphocytes % 8.7 % (24.0-44.0); Mean Cell Volume 97.9 fL (78-100); Mean Corpuscular Hemoglobin 32.3 pg (26-32); Mean Platelet Volume 10.3 fL (7.5-11.0); Monocyte (Absolute #) 0.39 x10^3/uL (0.0-1.3); Monocytes % 5.8 % (0.0-12.0); Neutrophil % 84.5 % (36.0-66.0); Platelet Count 192 x10^3/uL (150-450); Red Blood Count 4.27 x10^6/uL (4.1-5.6); Red Cell Distribution Width 12.6 % (11.5-14.0); White Blood Count 6.7 x10^3/uL (4.0-10.5)
[2022-11-13 22:49] LABS: ALBUMIN 4.2 g/dL (3.5-5.0); ALKALINE PHOSPHATASE 86 U/L (38-126); ANION GAP 10.1 MEQ/L (5-15); BLOOD UREA NITROGEN 24 mg/dL (9-20); CHLORIDE 99 mmol/L (98-107); Calcium 8.2 mg/dL (8.4-10.2); Carbon Dioxide 29 mmol/L (22-30); EST GLOMERULAR FILTRATION RATE > 60.0 ML/MIN; Glucose 124 mg/dL (74-106); NT PRO BNPII 158 pg/mL (<300); SGOT/AST 31 U/L (17-59); SGPT/ALT 22 U/L (0-50); SODIUM 134 mmol/L (137-145); Total Protein 7.8 g/dL (6.3-8.2)
[2022-11-13 23:01] LABS: INFLUENZA A NEGATIVE (NEGATIVE); INFLUENZA B NEGATIVE (NEGATIVE); RESPIRATORY SYNCTIAL VIRUS NEGATIVE (Negative); SARS-CoV-2 Xpert Express NEGATIVE (NEGATIVE)
[2022-11-14 00:05] LABS: Slide Review 1 YES
[2022-11-14 01:33] LABS: Appearance Clear (Clear); Bacteria None Seen /HPF (None Seen); Bilirubin Negative (Negative); Blood Negative (Negative); Epithelial Cells None Seen /HPF (None Seen); Glucose, Urine Negative (Negative); Hyaline Casts NONE SEEN /LPF (0-2); Ketones Negative (Negative); Leukocyte Esterase Negative (Negative); Nitrite Negative (Negative); Protein,Urine Dip Trace (Negative); RBC 0-2 /HPF (0-5); Specific Gravity >=1.030 (1.005-1.030); WBC 0-2 /HPF (0-5)
[2022-11-14 01:54] LABS: ADD URINE CULTURE? NO (NO)
[2022-11-14] MEDS ORDERED: ROCEPHIN 1 Gm-D5w 50 ml Bag** 1 G/50 ML IVPB IV STA (01:59)
[2022-11-14] MEDS ORDERED: solu-MEDROL 125 MG, Sterile H2O 10 ml 2 ML IV ONE ×2 (01:59)
[2022-11-14] MEDS ORDERED: ROCEPHIN 1 Gm-D5w 50 ml Bag** 1 G/50 ML IVPB IV ONE (02:02)
[2022-11-14] MEDS ORDERED: Sterile H2O 10 ml IJ ONE (02:02)
[2022-11-14] MEDS ORDERED: solu-MEDROL ONE (02:02)
[2022-11-14 02:05] VITALS: BP 122/68
[2022-11-14 02:33] VITALS: PULSE 97; O2SAT 92
--- NOTE | 2022-11-14 08:46 | XRAY ---
Indication: Cough and short of breath. Elevated d-dimer. Multiple contiguous axial images obtained through the chest using 100 cc Isovue 370 contrast and PE protocol. Comparison: None Adequate opacification of the pulmonary arteries. Pulmonary embolus evaluation limited by mild respiration artifact throughout. No obvious pulmonary embolus. Heart not enlarged with scattered coronary calcifications. Aorta mildly arteriosclerotic without aneurysm/dissection. No pathologic mediastinal/hilar lymphadenopathy. Lungs demonstrates mild lingula and bibasilar subsegmental atelectasis/scarring. No suspicious pulmonary mass/nodule, infiltrate, or effusion. Bony thorax intact with osteopenia, mild/moderate degenerative changes throughout the spine, and mild dextroscoliosis centered at T9. Limited upper abdomen demonstrates fatty liver. Impression: 1. Pulmonary embolus evaluation limited by respiration artifact. No obvious pulmonary embolus. 2. Chronic findings including atelectasis/scarring, arteriosclerotic disease, chronic bony findings, and fatty liver. 3. Remaining CT chest with contrast exam is negative. Comment: Preliminary interpretation made by [facility]. No critical discrepancy.
--- NOTE | 2022-11-14 08:48 | XRAY ---
Indication: Cough. Comparison: July 16, 2019 Portable chest better inflated and clear. Heart not enlarged again with tortuous descending aorta. Bony thorax intact again with osteopenia, degenerative changes, and mild dextroscoliosis. Impression: Nonacute chest with chronic features.
== END 2022-11-14 02:49 | disposition home or self-care (01) ==
LOC: ED 21:54
DX: J06.9 Acute upper respiratory infection, unspecified (principal); R05.1 Acute cough; R11.10 Vomiting, unspecified; I10 Essential (primary) hypertension; E78.5 Hyperlipidemia, unspecified; Z79.52 Long term (current) use of systemic steroids; Z79.899 Other long term (current) drug therapy
CPT/HCPCS: 0241U; 36000; 36415; 71045; 71260; 80053; 81001; 83880; 84484; 85025; 85379; 93005; 96374; 96375; 99284; J0696; J2405; J2930

== ENCOUNTER 2022-12-14 18:26 | Emergency (ER) | payer OTHER, MEDICARE ==
--- NOTE | 2022-12-14 18:50 | ERPHSYRPT ---
- History of Present Illness Time Seen by Provider: 12/14/22 18:50 Historian: patient Exam Limitations: no limitations Physician History: Patient reports diarrhea since Saturday. No recent abx use Decreased appetite, no abd pain Not eating much over the past 2 days Foul smelling stool Denies blood in stool Taking pepto and antidiarreal tablet otc w/out improvement Timing/Duration: week(s) Activities at Onset: rest Quality: other (na) Abdominal Pain Onset Location: other (na) Pain Radiation: other (na) Severity of Pain-Max: none Severity of Pain-Current: none Modifying Factors: Improves With: nothing Associated Symptoms: diarrhea, fatigue, loss of appetite, nausea, weakness, No fever/chills, No rash, No vomiting Allergies/Adverse Reactions: No Known Drug Allergies Allergy (Verified 12/14/22 18:56) Home Medications: Triamterene/Hydrochlorothiazid [Triamterene-Hctz 37.5-25 mg Tb] 1 each PO DAILY 07/16/19 [History] Celecoxib 100 mg [celeBREX 100 MG] 200 mg PO BIDWMEALS 07/17/19 [History] Methocarbamol [Robaxin] 750 mg PO HS 07/17/19 [History] Pravastatin Sodium 20 mg PO HS 07/17/19 [History] Hx Tetanus, Diphtheria Vaccination/Date Given: Yes Hx Influenza Vaccination/Date Given: No Hx Pneumococcal Vaccination/Date Given: Yes Travel Risk - Vaccine Status Have you recieved a 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: 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[employer] - Vaccination Dates Date of 2cond Vaccination (if applicable): n/a - Review of Systems Constitutional: Fatigue, Weakness, No Fever, No Chills Ears, Nose, & Throat: No Symptoms Respiratory: No Symptoms Cardiac: No Symptoms Abdominal/Gastrointestinal: Nausea, Diarrhea, Appetite Changes, No Abdominal Pain, No Vomiting, No Hematemesis, No Hematochezia, No Melena Genitourinary Symptoms: No Symptoms Musculoskeletal: No Symptoms Skin: No Symptoms Neurological: No Symptoms Psychological: No Symptoms Endocrine: No Symptoms Hematologic/Lymphatic: No Symptoms Immunological/Allergic: No Symptoms - Past Medical History Pertinent Past Medical History: Yes Neurological History: No Pertinent History ENT History: No Pertinent History Cardiac History: Hypertension Respiratory History: No Pertinent History Endocrine Medical History: No Pertinent History Musculoskeletal History: Arthritis GI Medical History: No Pertinent History History: No Pertinent History Psycho-Social History: No Pertinent History Male Reproductive Disorders: No Pertinent History - Past Surgical History Past Surgical History: No Neuro Surgical History: No Pertinent History Cardiac: No Pertinent History Respiratory: No Pertinent History Gastrointestinal: No Pertinent History Genitourinary: No Pertinent History Musculoskeletal: No Pertinent History Male Surgical History: No Pertinent History - Social History Smoking Status: Former smoker Exposure to second hand smoke: No Drug Use: none Patient Lives Alone: No - Nursing Vital Signs Nursing Vital Signs: Initial Vital Signs Temperature 98.3 F 12/14/22 18:45 Pulse Rate 107 H 12/14/22 18:45 Respiratory Rate 18 12/14/22 18:45 Blood Pressure 157/86 12/14/22 18:45 O2 Sat by Pulse Oximetry 96 12/14/22 18:45 Pain Scale Pain Intensity 0 - Physical Exam General Appearance: no apparent distress Eye Exam: PERRL/EOMI, eyes nml inspection Ears, Nose, Throat Exam: normal ENT inspection Neck Exam: normal inspection, non-tender, supple, full range of motion Respiratory Exam: normal breath sounds, lungs clear Cardiovascular Exam: regular rate/rhythm, normal heart sounds Gastrointestinal/Abdomen Exam: soft, normal bowel sounds, No tenderness, No distention, No guarding, No rebound Back Exam: normal inspection, normal range of motion, No CVA tenderness Extremity Exam: normal inspection, No swelling Neurologic Exam: alert, oriented x 3 Skin Exam: normal color, warm, dry, pale SpO2 Interpretation: normal SpO2: 96 O2 Delivery: Room Air - Course Nursing assessment & vital signs reviewed: Yes EKG Interpreted by Me: RATE (94), Sinus Rhythm, NORMAL AXIS, Non-specific ST Changes, Other (prolonged VT) Ordered Tests: Medication Summary Discontinued Medications Generic Name Dose Route Start Last Admin Trade Name Freq PRN Reason Stop Dose Admin Hydralazine HCl 10 mg 12/14/22 23:12 12/15/22 00:11 Hydralazine Hcl 20 Mg/Ml Vial IV 12/14/22 23:13 Not Given STAT ONE Hydralazine HCl Confirm 12/15/22 00:06 Hydralazine Hcl 20 Mg/Ml Vial Administered 12/15/22 00:07 Dose 20 mg .ROUTE .STK-MED ONE Sodium Chloride 1,000 mls @ 999 mls/hr 12/14/22 19:43 12/14/22 21:35 Sodium Chloride 0.9% 1000 Ml IV 12/14/22 20:43 Infused .Q1H1M STA Infusion Sodium Chloride Confirm 12/14/22 19:55 Sodium Chloride 0.9% 1000 Ml Administered 12/14/22 19:56 Dose 1,000 mls @ ud .ROUTE .STK-MED ONE Loperamide HCl 4 mg 12/14/22 23:33 12/15/22 00:12 Loperamide Hcl 2 Mg Capsule PO 12/14/22 23:34 4 mg STAT ONE Administration Potassium Chloride 40 meq 12/14/22 20:54 12/14/22 22:18 Potassium Chloride Tab 10 Meq Tab PO 12/14/22 20:55 40 meq STAT ONE Administration Potassium Chloride Confirm 12/14/22 22:17 Potassium Chloride Tab 10 Meq Tab Administered 12/14/22 22:18 Dose 40 meq PO .STK-MED ONE Lab/Rad Data: Laboratory Result Diagrams 12/14/22 20:10 12/14/22 20:10 Laboratory Results 12/14/22 12/14/22 12/14/22 Range/Units 21:34 21:34 20:10 WBC (4.0-10.5) x10^3/uL RBC (4.1-5.6) x10^6/uL Hgb (12.5-18.0) g/dL Hct (42-50) % MCV (78-100) fL MCH (26-32) pg MCHC (32-36) g/dL RDW (11.5-14.0) % Plt Count (150-450) x10^3/uL MPV (7.5-11.0) fL Gran % (36.0-66.0) % Immature Gran % (Auto) (0.00-0.4) % Nucleat RBC Rel Count (0.00-0.1) % Eos # (Auto) (0-0.5) x10^3/uL Immature Gran # (Auto) (0.00-0.03) x10^3u/L Absolute Lymphs (auto) (1.0-4.6) x10^3/uL Absolute Monos (auto) (0.0-1.3) x10^3/uL Absolute Nucleated RBC (0.00-0.01) x10^3u/L Lymphocytes % (24.0-44.0) % Monocytes % (0.0-12.0) % Eosinophils % (0.00-5.0) % Basophils % (0.0-0.4) % Absolute Granulocytes (1.4-6.9) x10^3/uL Basophils # (0-0.4) x10^3/uL Sodium (137-145) mmol/L Potassium (3.5-5.1) mmol/L Chloride (98-107) mmol/L Carbon Dioxide (22-30) mmol/L Anion Gap (5-15) MEQ/L BUN (9-20) mg/dL Creatinine (0.66-1.25) mg/dL Estimated GFR ML/MIN Glucose (74-106) mg/dL Lactic Acid (0.4-2.0) Calcium (8.4-10.2) mg/dL Total Bilirubin (0.2-1.3) mg/dL AST (17-59) U/L ALT (0-50) U/L Alkaline Phosphatase (38-126) U/L Serum Total Protein (6.3-8.2) g/dL Albumin (3.5-5.0) g/dL Stool Occult Blood POSITIVE A (NEGATIVE) C. difficile Screen NEGATIVE (NEGATIVE) C.difficile 027-NAP1-B1 PRESUMPTIVE NEGATIVE (NEGATIVE) Influenza Type A Ag NEGATIVE (NEGATIVE) Influenza Type B Ag NEGATIVE (NEGATIVE) RSV (PCR) NEGATIVE (NEGATIVE) SARS-CoV-2 (PCR) NEGATIVE (NEGATIVE) 12/14/22 12/14/22 12/14/22 Range/Units 20:10 20:10 20:10 WBC 7.2 (4.0-10.5) x10^3/uL RBC 4.16 (4.1-5.6) x10^6/uL Hgb 13.3 (12.5-18.0) g/dL Hct 40.0 L (42-50) % MCV 96.2 (78-100) fL MCH 32.0 (26-32) pg MCHC 33.3 (32-36) g/dL RDW 12.6 (11.5-14.0) % Plt Count 233 (150-450) x10^3/uL MPV 10.3 (7.5-11.0) fL Gran % 58.5 (36.0-66.0) % Immature Gran % (Auto) 0.1 (0.00-0.4) % Nucleat RBC Rel Count 0.0 (0.00-0.1) % Eos # (Auto) 0.04 (0-0.5) x10^3/uL Immature Gran # (Auto) 0.01 (0.00-0.03) x10^3u/L Absolute Lymphs (auto) 1.86 (1.0-4.6) x10^3/uL Absolute Monos (auto) 1.06 (0.0-1.3) x10^3/uL Absolute Nucleated RBC 0.00 (0.00-0.01) x10^3u/L Lymphocytes % 25.8 (24.0-44.0) % Monocytes % 14.7 H (0.0-12.0) % Eosinophils % 0.6 (0.00-5.0) % Basophils % 0.3 (0.0-0.4) % Absolute Granulocytes 4.21 (1.4-6.9) x10^3/uL Basophils # 0.02 (0-0.4) x10^3/uL Sodium 136 L (137-145) mmol/L Potassium 3.3 L (3.5-5.1) mmol/L Chloride 99 (98-107) mmol/L Carbon Dioxide 27 (22-30) mmol/L Anion Gap 13.6 (5-15) MEQ/L BUN 28 H (9-20) mg/dL Creatinine 1.09 (0.66-1.25) mg/dL Estimated GFR > 60.0 ML/MIN Glucose 99 (74-106) mg/dL Lactic Acid 0.9 (0.4-2.0) Calcium 8.5 (8.4-10.2) mg/dL Total Bilirubin 0.50 (0.2-1.3) mg/dL AST 31 (17-59) U/L ALT 20 (0-50) U/L Alkaline Phosphatase 69 (38-126) U/L Serum Total Protein 7.6 (6.3-8.2) g/dL Albumin 4.3 (3.5-5.0) g/dL Stool Occult Blood (NEGATIVE) C. difficile Screen (NEGATIVE) C.difficile 027-NAP1-B1 (NEGATIVE) Influenza Type A Ag (NEGATIVE) Influenza Type B Ag (NEGATIVE) RSV (PCR) (NEGATIVE) SARS-CoV-2 (PCR) (NEGATIVE) - Progress Progress: unchanged Progress Note: Notable lab results - K 3.3, given 40meq Kcl. Occult positive, Hb 13.3. C Diff neg. Patient only had 1 small BM while in ER. Continues to have no abd pain, CT deferred. Will d/c w/ Loperamide. F/U stool studies w/ PCP. Counseled pt/family regarding: lab results, diagnosis, need for follow-up Medical Desision Making - Risk of complications The pt has a mod risk of morbidity or mortality based on: Need for prescription drug management - Departure Departure Disposition: Home Clinical Impression: Diarrhea, Occult blood positive stool, Hypokalemia, HTN (hypertension) Condition: Stable Critical Care Time: No Referrals: HOSPITAL,'S [Primary Care Provider] - Follow up/PCP as directed Instructions: Loperamide Prescriptions: Loperamide HCl/Simethicone [Loperamide-Simeth 2-125 mg Tab] 1 each PO CLARIFY PRN #28 tablet MDD 4 tabs in 24 hours PRN Reason: Diarrhea
[2022-12-14] MEDS ORDERED: Sodium Chloride 0.9% 1000 ML 1,000 ML IV STA (19:43)
[2022-12-14] MEDS ORDERED: Sodium Chloride 0.9% 1000 ML 1,000 ML ONE (19:55)
[2022-12-14 20:33] LABS: Absolute Neutrophil Ct (ANC) 4.21 x10^3/uL (1.4-6.9); BASOPHIL % 0.3 % (0.0-0.4); Basophil (Absolute #) 0.02 x10^3/uL (0-0.4); Eosinophil % 0.6 % (0.00-5.0); Eosinophil (Absolute #) 0.04 x10^3/uL (0-0.5); Hemoglobin 13.3 g/dL (12.5-18.0); IMMATURE GRAN # 0.01 x10^3u/L (0.00-0.03); IMMATURE GRAN % 0.1 % (0.00-0.4); Lymphocyte (Absolute #) 1.86 x10^3/uL (1.0-4.6); Lymphocytes % 25.8 % (24.0-44.0); Mean Cell Volume 96.2 fL (78-100); Mean Corpuscular Hgb Concent. 33.3 g/dL (32-36); Mean Platelet Volume 10.3 fL (7.5-11.0); Monocyte (Absolute #) 1.06 x10^3/uL (0.0-1.3); Monocytes % 14.7 % (0.0-12.0); Neutrophil % 58.5 % (36.0-66.0); Platelet Count 233 x10^3/uL (150-450); Red Blood Count 4.16 x10^6/uL (4.1-5.6); Red Cell Distribution Width 12.6 % (11.5-14.0); White Blood Count 7.2 x10^3/uL (4.0-10.5)
[2022-12-14 20:47] LABS: ALBUMIN 4.3 g/dL (3.5-5.0); ALKALINE PHOSPHATASE 69 U/L (38-126); ANION GAP 13.6 MEQ/L (5-15); BLOOD UREA NITROGEN 28 mg/dL (9-20); CHLORIDE 99 mmol/L (98-107); Calcium 8.5 mg/dL (8.4-10.2); Carbon Dioxide 27 mmol/L (22-30); Creatinine 1 1.09 mg/dL (0.66-1.25); EST GLOMERULAR FILTRATION RATE > 60.0 ML/MIN; Glucose 99 mg/dL (74-106); Potassium 3.3 mmol/L (3.5-5.1); SGOT/AST 31 U/L (17-59); SGPT/ALT 20 U/L (0-50); SODIUM 136 mmol/L (137-145); Total Protein 7.6 g/dL (6.3-8.2)
[2022-12-14] MEDS ORDERED: Klor Con PO ONE ×2 (20:54→22:17)
[2022-12-14 21:10] LABS: INFLUENZA A NEGATIVE (NEGATIVE); INFLUENZA B NEGATIVE (NEGATIVE); RESPIRATORY SYNCTIAL VIRUS NEGATIVE (NEGATIVE); SARS-CoV-2 Xpert Express NEGATIVE (NEGATIVE)
[2022-12-14 22:54] LABS: 027 TOX PROD PRESUMPTIVE NEGATIVE (NEGATIVE); TOXIGENIC C. DIFF ORG NEGATIVE (NEGATIVE)
[2022-12-14] MEDS ORDERED: IMODIUM 2 MG PO ONE (23:33)
[2022-12-15] MEDS ORDERED: APRESOLINE 20 MG/ML INJ ONE (00:06)
[2022-12-15] MEDS: APRESOLINE 20 MG/ML INJ IV ONE ×2 (00:07→00:11)
[2022-12-15 00:14] VITALS: PULSE 94
[2022-12-15 00:25] VITALS: BP 130/78
[2022-12-18 12:05] VITALS: O2SAT 96
== END 2022-12-15 00:23 | disposition home or self-care (01) ==
LOC: ED 18:26
DX: R19.7 Diarrhea, unspecified (principal); R19.5 Other fecal abnormalities; E87.6 Hypokalemia; I10 Essential (primary) hypertension; Z79.899 Other long term (current) drug therapy
CPT/HCPCS: 0241U; 36000; 36415; 80053; 83605; 85025; 87046; 87493; 93005; 99284; G0328; 82274; J0360; A9270-GY

== ENCOUNTER 2023-10-07 13:00 | Emergency (ER) | payer MEDICARE, OTHER ==
[2023-10-07] MEDS ORDERED: ZOFRAN ODT 4 MG PO ONE (13:12)
[2023-10-07] MEDS ORDERED: Hydromorphone 1 mg/ml Injection IM ONE (13:13)
[2023-10-07 13:15] VITALS: RESP 20; TEMP 98.8
[2023-10-07] MEDS ORDERED: ZOFRAN ODT 4 MG ONE (13:19)
[2023-10-07] MEDS ORDERED: Hydromorphone 1 mg/ml Injection ONE (13:20)
--- NOTE | 2023-10-07 14:14 | XRAY ---
Indication: Low back pain. Multiple contiguous axial images obtained through the lumbar spine. Sagittal and coronal reformatted images obtained. Comparison: CT abdomen/pelvis July 16, 2019 Again moderate/advanced multilevel thoracolumbar degenerative disc disease with degenerative vacuum disc phenomena grossly similar in appearance. Greatest extent again seen at L4-S1 levels. Stable minimal T12/L1 anterior wedging deformities. Sagittal and coronal reformatted images again demonstrate mild levorotoscoliosis centered at L2-L3. There remains multilevel thoracolumbar disc space narrowing again greatest at L1-L3 levels. No acute compression fracture or subluxation. Visualized noncontrasted soft tissues again demonstrate mild aortoiliac calcifications and scattered sigmoid diverticulosis. Impression: Again chronic findings including osteopenia, multilevel thoracolumbar degenerative disc disease, levorotoscoliosis, remote T12/L1 anterior wedging deformities, arteriosclerotic disease, and sigmoid diverticulosis. No new/acute findings.
[2023-10-07] MEDS ORDERED: Kenalog-40 IM ONE (14:28)
[2023-10-07] MEDS ORDERED: Kenalog-40 ONE (14:30)
--- NOTE | 2023-10-07 14:34 | ERPHSYRPT ---
- History of Present Illness Time Seen by Provider: 10/07/23 13:15 Source: patient, family Exam Limitations: no limitations Patient Subjective Stated Complaint: PT states "I have curvature of the spine and it has really been bothering me." Triage Nursing Assessment: Pt presented alert and oriented X3, skin pwd. Pt ambualtes with a hunched overgait, able to speak in clear full sentences. pt resting comfortably ont eh bed. Physician History: Patient is an 83-year-old white male who presents with a complaint of back pain. He has had curvature of the spine for many years and has chronic back pain because of that. This episode of back pain starts in the lower back and radiates all the way down to the right foot and has been present for 1 week. He denies any problems with his bowels or bladder. He has had no pain like this in the past it differs from his chronic pain. Timing/Duration: week(s) (1) Method of Injury: unknown Quality: radiating, sharp Back Pain Location: lumbar spine Back Pain Radiation: lower legs (Right leg) Severity of Pain-Max: severe Severity of Pain-Current: severe Modifying Factors: Improves With: movement Associated Symptoms: weakness, lower back pain Previous symptoms: different symptoms Allergies/Adverse Reactions: No Known Drug Allergies Allergy (Verified 12/14/22 18:56) Home Medications: Triamterene/Hydrochlorothiazid [Triamterene-Hctz 37.5-25 mg Tb] 1 each PO DAILY 07/16/19 [History] Celecoxib 100 mg [celeBREX 100 MG] 200 mg PO BIDWMEALS 07/17/19 [History] Methocarbamol [Robaxin] 750 mg PO HS 07/17/19 [History] Pravastatin Sodium 20 mg PO HS 07/17/19 [History] Hx Tetanus, Diphtheria Vaccination/Date Given: Yes Hx Influenza Vaccination/Date Given: No Hx Pneumococcal Vaccination/Date Given: Yes Immunizations Up to Date: Yes Travel Risk - International Travel Have you traveled outside of the country in past 3 weeks: No - Coronavirus Screening Are you exhibiting any of the following symptoms?: No Close contact with a COVID-19 positive Pt in past 14-21 Days: No - Vaccine Status Have you recieved a 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: 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[employer] - Vaccination Dates Date of 2cond Vaccination (if applicable): n/a - Review of Systems Constitutional: No Fever, No Chills Eyes: No Symptoms Ears, Nose, & Throat: No Symptoms Respiratory: No Cough, No Dyspnea Cardiac: No Chest Pain, No Edema, No Syncope Abdominal/Gastrointestinal: No Abdominal Pain, No Nausea, No Vomiting, No Diarrhea Genitourinary Symptoms: No Dysuria Musculoskeletal: Back Pain, Myalgias, No Neck Pain Skin: No Rash Neurological: No Dizziness, No Focal Weakness, No Sensory Changes Psychological: No Symptoms Endocrine: No Symptoms All Other Systems: Reviewed and Negative - Past Medical History Pertinent Past Medical History: Yes Neurological History: No Pertinent History ENT History: No Pertinent History Cardiac History: Hypertension Respiratory History: No Pertinent History Endocrine Medical History: No Pertinent History Musculoskeletal History: Arthritis GI Medical History: No Pertinent History History: No Pertinent History Psycho-Social History: No Pertinent History Male Reproductive Disorders: No Pertinent History - Past Surgical History Past Surgical History: No Neuro Surgical History: No Pertinent History Cardiac: No Pertinent History Respiratory: No Pertinent History Gastrointestinal: No Pertinent History Genitourinary: No Pertinent History Musculoskeletal: No Pertinent History Male Surgical History: No Pertinent History - Social History Smoking Status: Former smoker Exposure to second hand smoke: No Drug Use: none Patient Lives Alone: No - Nursing Vital Signs Nursing Vital Signs: Initial Vital Signs Temperature 98.8 F 10/07/23 13:04 Pulse Rate 82 10/07/23 13:04 Respiratory Rate 20 10/07/23 13:04 Blood Pressure 180/105 10/07/23 13:04 O2 Sat by Pulse Oximetry 96 10/07/23 13:04 Pain Scale Pain Intensity 5 - Physical Exam General Appearance: moderate distress, alert Eye Exam: PERRL/EOMI, eyes nml inspection Ears, Nose, Throat Exam: normal ENT inspection Neck Exam: normal inspection, non-tender, supple, full range of motion, No meningismus, No midline tenderness Respiratory Exam: normal breath sounds, lungs clear, No respiratory distress Cardiovascular Exam: regular rate/rhythm, normal heart sounds Gastrointestinal Exam: soft, No tenderness, No mass Back Exam: vertebral tenderness, decreased range of motion, other (Straight leg positive on the right) Extremity Exam: normal inspection, normal range of motion, No calf tenderness, No pedal edema Neurologic Exam: alert, oriented x 3, cooperative, 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, normal mood/affect, nml station & gait, sensation nml, abnormal gait, No motor deficits Skin Exam: normal color, warm, dry, No rash SpO2: 96 - Course Nursing assessment & vital signs reviewed: Yes - CT Exams Lumbar Spine CT Interpretation: Other (Severe degenerative changes and new problems at L4 S1.) Ordered Tests: Active Orders 24 hr Category Date Time Status LUMBAR SPINE W/O [CT] Stat Exams 10/07/23 13:11 Completed Medication Summary Discontinued Medications Generic Name Dose Route Start Last Admin Trade Name Freq PRN Reason Stop Dose Admin Hydromorphone HCl 1 mg 10/07/23 13:13 10/07/23 13:21 Hydromorphone 1 Mg/1ml Inj IM 10/07/23 13:14 1 mg STAT ONE Administration Hydromorphone HCl Confirm 10/07/23 13:20 Hydromorphone 1 Mg/1ml Inj Administered 10/07/23 13:21 Dose 1 mg .ROUTE .STK-MED ONE Ondansetron HCl 4 mg 10/07/23 13:12 10/07/23 13:21 Zofran 4 Mg/Udtablet Orally Disintegrating PO 10/07/23 13:13 4 mg STAT ONE Administration Ondansetron HCl Confirm 10/07/23 13:19 Zofran 4 Mg/Udtablet Orally Disintegrating Administered 10/07/23 13:20 Dose 4 mg .ROUTE .STK-MED ONE - Progress Progress: improved Medical Desision Making - Diagnostic Testing Radiological Interpretation: Reviewed by me - Departure Departure Disposition: Home Clinical Impression: Sciatica Condition: Stable Critical Care Time: No Referrals: [facility]OSP[facility],'S [Primary Care Provider] - Follow up/PCP as directed Instructions: Sciatica (DC), Low Back Pain (DC) Prescriptions: Hydrocodone/Acetaminophen [Hydrocodone-Acetamin 5-325 mg] 1 tab PO Q6HPRN PRN 3 Days #12 tablet MDD 4 PRN Reason: Pain Prednisone 10 mg [Deltasone 10 mg] 10 mg PO TID #12 tablet
[2023-10-07] MEDS ORDERED: NORCO 5/325 MG PO ONE (14:39)
[2023-10-07] MEDS ORDERED: NORCO 5/325 MG ONE (14:43)
[2023-10-07 14:47] VITALS: BP 122/96; PULSE 92; O2SAT 91
== END 2023-10-07 15:01 | disposition home or self-care (01) ==
LOC: ED 13:00
DX: M54.31 Sciatica, right side (principal); I10 Essential (primary) hypertension; Z79.891 Long term (current) use of opiate analgesic; Z79.52 Long term (current) use of systemic steroids; Z79.899 Other long term (current) drug therapy
CPT/HCPCS: 72131; 96372; 99284; J1170; J3301; Q0162; A9270-GY

== ENCOUNTER 2023-12-25 10:47 | Day surgery (SDC) | payer OTHER ==
[2023-12-25] MEDS ORDERED: Sodium Chloride 0.9(Preservative Free) 10 ML IJ ONE (10:48)
[2023-12-25] MEDS ORDERED: Decadron 4 MG INJ IV ONE (10:48)
[2023-12-25] MEDS ORDERED: DIPRIVAN 200 MG/20 ML IV ONE (14:04)
[2023-12-25] MEDS ORDERED: Lactated Ringers 1,000 ML IV ONE (14:50)
--- NOTE | 2023-12-25 15:03 | XRAY ---
Indication: Right L4-S1 transforaminal RENAN. Intraoperative fluoroscopy provided for 24 seconds. 3 digital spot image submitted for interpretation demonstrates posterior needle tips projecting over the expected right L4 and L5 nerve roots. Small amount of contrast injected for needle tip placement. Correlate with intraoperative findings/report.
--- NOTE | 2023-12-25 15:07 | XRAY ---
24 seconds of fluoroscopy was used in surgery for a right L4-S1 transforaminal RENAN.
== END 2023-12-25 14:37 | disposition home or self-care (01) ==
LOC: SDC-PAIN 10:47
PROVIDERS: ATTEND Psychiatry & Neurology Pain Medicine
DX: M54.16 Radiculopathy, lumbar region (principal)
CPT/HCPCS: 64483; 64484; 72100; 77003; J1100; J2704; Q9966

== ENCOUNTER 2024-02-07 12:21 | Emergency (ER) | payer OTHER ==
--- NOTE | 2024-02-07 12:46 | ERPHSYRPT ---
- History of Present Illness Time Seen by Provider: 02/07/24 12:46 Source: patient, family Exam Limitations: no limitations Physician History: This is an obese 83-year-old white male patient who is a and receives his care at the [facility] [place] [facility]. Patient presents with worsening bilateral lower extremity swelling worse on the left than the right over the last week. In addition, he is having worse pain in the left knee. This morning he woke up and could not bear weight. He does not recall of specific injury to this area. He has not had a fever. He denies chest pain. He denies shortness of breath. He called the [facility] who told him to go to the emergency department where they should be able to rule out a DVT. Patient does see a pain specialist for his chronic low back pain. They did not address his knee pain per his report this past week. Patient has a history of hypertension, arthritis, chronic low back pain and hyperlipidemia. Patient takes Celebrex and Robaxin for pain. He was taking pregabalin but stopped taking this medication because it was just making him drowsy and not helping with his pain control. Method of Injury: other (No known method of injury) Occurred: other (Been present and worsening over the last week) Quality: constant (When up and ambulating), sharpness (When up and ambulating), stabbing (When up and ambulating), other (When patient is lying flat, the pain resolves) Severity of Pain-Max: moderate Severity of Pain-Current: moderate Lower Extremities Pain: knee: left Modifying Factors: Improves With: movement (Ambulating worsens the left knee pain), other (Lying flat improves the pain) Associated Symptoms: unable to bear weight (Because of pain in his left knee when ambulating) Allergies/Adverse Reactions: No Known Drug Allergies Allergy (Verified 02/07/24 12:37) Home Medications: Triamterene/Hydrochlorothiazid [Triamterene-Hctz 37.5-25 mg Tb] 1 each PO DAILY 07/16/19 [History] Celecoxib 100 mg [celeBREX 100 MG] 200 mg PO BIDWMEALS 07/17/19 [History] Methocarbamol [Robaxin] 750 mg PO HS 07/17/19 [History] Pravastatin Sodium 20 mg PO HS 07/17/19 [History] Hx Tetanus, Diphtheria Vaccination/Date Given: Yes Hx Influenza Vaccination/Date Given: No Hx Pneumococcal Vaccination/Date Given: Yes Travel Risk - International Travel Have you traveled outside of the country in past 3 weeks: No - Emerging Infectious Disease Are you exhibiting symptoms associated with any current EIDs: No - Review of Systems Constitutional: No Symptoms Eyes: No Symptoms Ears, Nose, & Throat: No Symptoms Respiratory: No Symptoms Cardiac: No Symptoms Abdominal/Gastrointestinal: No Symptoms Genitourinary Symptoms: No Symptoms Musculoskeletal: Joint Pain (Left knee) Skin: No Symptoms Neurological: No Symptoms Psychological: No Symptoms Endocrine: No Symptoms Hematologic/Lymphatic: No Symptoms Immunological/Allergic: No Symptoms All Other Systems: Reviewed and Negative - Past Medical History Pertinent Past Medical History: Yes Neurological History: No Pertinent History ENT History: No Pertinent History Cardiac History: Hypertension Respiratory History: No Pertinent History Endocrine Medical History: No Pertinent History Musculoskeletal History: Arthritis GI Medical History: No Pertinent History History: No Pertinent History Psycho-Social History: No Pertinent History Male Reproductive Disorders: No Pertinent History - Past Surgical History Past Surgical History: No Neuro Surgical History: No Pertinent History Cardiac: No Pertinent History Respiratory: No Pertinent History Gastrointestinal: No Pertinent History Genitourinary: No Pertinent History Musculoskeletal: No Pertinent History Male Surgical History: No Pertinent History Other Surgical History: chronic back pain - Social History Smoking Status: Former smoker Exposure to second hand smoke: No Drug Use: none Patient Lives Alone: No - Nursing Vital Signs Nursing Vital Signs: Initial Vital Signs Temperature 97.7 F 02/07/24 12:46 Pulse Rate 83 02/07/24 12:46 Respiratory Rate 18 02/07/24 12:46 Blood Pressure 150/84 02/07/24 12:46 O2 Sat by Pulse Oximetry 96 02/07/24 12:46 Pain Scale Pain Intensity 1 - Physical Exam General Appearance: no apparent distress, alert, obese Eyes, Ears, Nose, Throat Exam: normal ENT inspection, moist mucous membranes Neck Exam: normal inspection, non-tender, supple, full range of motion Cardiovascular/Respiratory Exam: chest non-tender, no respiratory distress Gastrointestinal/Abdominal Exam: non-tender Back Exam: normal inspection, normal range of motion, No CVA tenderness, No vertebral tenderness Hips Exam: bilateral: non-tender, normal inspection, normal range of motion, no evidence of injury Legs Exam: bilateral leg: non-tender, normal inspection, normal range of motion, no evidence of injury Knees Exam: right knee: non-tender, left knee: bone tenderness (Symptoms worse when upright and ambulating), soft tissue tenderness (Symptoms worse when upright and ambulating), bilateral knee: normal inspection, normal range of jerald on, no evidence of injury Ankle Exam: bilateral ankle: non-tender, normal range of motion, no evidence of injury, swelling Foot Exam: bilateral foot: non-tender, normal range of motion, no evidence of injury, swelling Neuro/Tendon Exam: normal sensation, normal motor functions, normal tendon functions, responds to pain, no evidence tendon injury Mental Status Exam: alert, oriented x 3, cooperative Skin Exam: normal color, warm, dry SpO2 Interpretation: normal O2 Delivery: Room Air - Course Nursing assessment & vital signs reviewed: Yes Ordered Tests: Active Orders 24 hr Category Date Time Status IV Insertion STAT Care 02/07/24 13:13 Active LOWER EXTREMITY WO CONTRAST [CT] Stat Exams 02/07/24 13:15 Completed VENOUS BILATERAL EXTREMITY [US] Stat Exams 02/07/24 13:14 Completed CBC W DIFF Stat Lab 02/07/24 14:14 Completed CMP Stat Lab 02/07/24 14:14 Completed NT PRO BNPII Stat Lab 02/07/24 14:14 Completed Medication Summary Discontinued Medications Generic Name Dose Route Start Last Admin Trade Name Jenni PRN Reason Stop Dose Admin Methylprednisolone Sodium 0 mg 02/07/24 13:41 02/07/24 15:47 Succinate 125 mg/ Sterile IV 02/07/24 13:42 125 mg Water 2 ml STAT ONE Administration Hydromorphone HCl 1 mg 02/07/24 13:40 02/07/24 15:44 Hydromorphone 1 Mg/1ml Inj IV 02/07/24 13:41 1 mg STAT ONE Administration Hydromorphone HCl Confirm 02/07/24 15:37 Hydromorphone 1 Mg/1ml Inj Administered 02/07/24 15:38 Dose 1 mg .ROUTE .STK-MED ONE Methylprednisolone Sodium Succinate Confirm 02/07/24 15:37 Methylprednis Sod Succ 125 Mg/2 Ml Vial Administered 02/07/24 15:38 Dose 125 mg .ROUTE .STK-MED ONE Ondansetron HCl 4 mg 02/07/24 13:41 02/07/24 15:45 Ondansetron Hcl 4 Mg/2 Ml Vial IV 02/07/24 13:42 4 mg STAT ONE Administration Ondansetron HCl Confirm 02/07/24 15:36 Ondansetron Hcl 4 Mg/2 Ml Vial Administered 02/07/24 15:37 Dose 4 mg .ROUTE .STK-MED ONE Orphenadrine Citrate 60 mg 02/07/24 13:41 Orphenadrine Citrate 60 Mg/2 Ml Vial IV 02/07/24 13:42 STAT ONE Sterile Water Confirm 02/07/24 15:36 Water For Injection,Sterile 10 Ml Vial Administered 02/07/24 15:37 Dose 10 ml IJ .STK-MED ONE Lab/Rad Data: Laboratory Result Diagrams 02/07/24 14:14 02/07/24 14:14 Laboratory Results 02/07/24 02/07/24 Range/Units 14:14 14:14 WBC 6.9 (4.0-10.5) x10^3/uL RBC 3.73 L (4.1-5.6) x10^6/uL Hgb 12.4 L (12.5-18.0) g/dL Hct 37.9 L (42-50) % MCV 101.6 H (78-100) fL MCH 33.2 H (26-32) pg MCHC 32.7 (32-36) g/dL RDW 12.4 (11.5-14.0) % Plt Count 207 (150-450) x10^3/uL MPV 10.6 (7.5-11.0) fL Gran % 65.2 (36.0-66.0) % Immature Gran % (Auto) 0.3 (0.00-0.4) % Nucleat RBC Rel Count 0.0 (0.00-0.1) % Eos # (Auto) 0.06 (0-0.5) x10^3/uL Immature Gran # (Auto) 0.02 (0.00-0.03) x10^3u/L Absolute Lymphs (auto) 1.58 (1.0-4.6) x10^3/uL Absolute Monos (auto) 0.69 (0.0-1.3) x10^3/uL Absolute Nucleated RBC 0.00 (0.00-0.01) x10^3u/L Lymphocytes % 23.1 L (24.0-44.0) % Monocytes % 10.1 (0.0-12.0) % Eosinophils % 0.9 (0.00-5.0) % Basophils % 0.4 (0.0-0.4) % Absolute Granulocytes 4.47 (1.4-6.9) x10^3/uL Basophils # 0.03 (0-0.4) x10^3/uL Sodium 138 (135-145) mmol/L Potassium 4.5 (3.5-5.1) mmol/L Chloride 102 (98-107) mmol/L Carbon Dioxide 30 (22-30) mmol/L Anion Gap 10.6 (5-15) MEQ/L BUN 25 H (9-20) mg/dL Creatinine 1.01 (0.66-1.25) mg/dL Estimated GFR 74.3 ML/MIN Glucose 74 (74-106) mg/dL Calcium 8.9 (8.4-10.2) mg/dL Total Bilirubin 0.50 (0.2-1.3) mg/dL AST 26 (17-59) U/L ALT 17 (0-50) U/L Alkaline Phosphatase 92 (38-126) U/L NT-Pro-B Natriuret Pep 416 (<300) pg/mL Serum Total Protein 7.4 (6.3-8.2) g/dL Albumin 4.3 (3.5-5.0) g/dL - Progress Progress: improved, pain not gone completely, re-examined Progress Note: 02/07/24 13:48 My medical decision making and the assignment of moderate complexity to this patient's medical issue is based on review of the patient's past medical history, review of patient's medication list, review of patient drug allergy list, history present illness and physical findings on examination. The workup in this patient includes placement of intravenous line, CBC, CMP, BNP, venous Doppler bilateral lower extremities to evaluate for DVT, CT scan of the left knee without contrast. 02/07/24 13:49 Differential diagnosis includes DVT, worsening renal failure, congestive heart failure, electrolyte abnormalities, fracture dislocation left knee 02/07/24 14:07 The pinsetter mechanic helper reports to me that the bilateral venous Doppler is negative for DVT. 02/07/24 15:22 I interpreted the patient's laboratory data results. There is no evidence of any acute or emergent medical issue based on the laboratory data results. 02/07/24 15:[address] scan of the left knee was interpreted by the radiologist and I reviewed the impression. The impression states nonspecific anterolateral subcutaneous soft tissue swelling. There are chronic findings including osteopenia, d egenerative changes and arterial sclerotic disease. There are no acute fractures. There are no abnormal effusions present Counseled pt/family regarding: lab results, diagnosis, need for follow-up, rad results Medical Desision Making - Independent Historian Additional History obtained from: Family - Diagnostic Testing Diagnostic test were ordered, analyzed, and reviewed by me: Yes Radiological Interpretation: Reviewed by me, Teleradiologist Report - Risk of complications The pt has a mod risk of morbidity or mortality based on: Need for prescription drug management - Departure Departure Disposition: Home Clinical Impression: Localized swelling of both lower legs, Left knee pain Condition: Stable Critical Care Time: No Referrals: [facility]OS[facility],'[facility] [Primary Care Provider] - Follow up/PCP as directed Additional Instructions: Alternate ice and heat to left leg every 6 hours while awake. Hold the Celebrex and take the prednisone as prescribed. Once the prednisone prescription has been completed, restart the Celebrex as prescribed. Call your primary care provider on 02/10/2024, to make a follow-up appointment to be seen in the next 3 to 5 days. Prescriptions: Oxycodone HCl/Acetaminophen [Percocet 5-325 mg Tablet] 1 each PO Q8H PRN PRN #6 tablet MDD 3 PRN Reason: Moderate To Severe Pain Prednisone 10 mg [Deltasone 10 mg] 10 mg PO TID #12 tablet
[2024-02-07 12:48] VITALS: TEMP 97.7
--- NOTE | 2024-02-07 14:18 | XRAY ---
Indication: Bilateral leg swelling. 2-dimensional sonogram and color Doppler imaging major venous vessels left and right leg performed. Comparison: None No thrombus seen in the examined deep venous vessels left and right leg including greater saphenous vein. Veins demonstrate normal compressibility. Venous waveforms are normal with and without augmentation. Impression: Left and right legs negative for DVT.
[2024-02-07 14:19] LABS: Absolute Neutrophil Ct (ANC) 4.47 x10^3/uL (1.4-6.9); BASOPHIL % 0.4 % (0.0-0.4); Basophil (Absolute #) 0.03 x10^3/uL (0-0.4); Eosinophil % 0.9 % (0.00-5.0); Eosinophil (Absolute #) 0.06 x10^3/uL (0-0.5); Hematocrit 37.9 % (42-50); Hemoglobin 12.4 g/dL (12.5-18.0); IMMATURE GRAN # 0.02 x10^3u/L (0.00-0.03); IMMATURE GRAN % 0.3 % (0.00-0.4); Lymphocyte (Absolute #) 1.58 x10^3/uL (1.0-4.6); Lymphocytes % 23.1 % (24.0-44.0); Mean Cell Volume 101.6 fL (78-100); Mean Corpuscular Hemoglobin 33.2 pg (26-32); Mean Corpuscular Hgb Concent. 32.7 g/dL (32-36); Mean Platelet Volume 10.6 fL (7.5-11.0); Monocyte (Absolute #) 0.69 x10^3/uL (0.0-1.3); Monocytes % 10.1 % (0.0-12.0); Neutrophil % 65.2 % (36.0-66.0); Platelet Count 207 x10^3/uL (150-450); Red Blood Count 3.73 x10^6/uL (4.1-5.6); Red Cell Distribution Width 12.4 % (11.5-14.0); White Blood Count 6.9 x10^3/uL (4.0-10.5)
[2024-02-07 14:42] LABS: ALBUMIN 4.3 g/dL (3.5-5.0); ANION GAP 10.6 MEQ/L (5-15); BILIRUBIN,TOTAL 0.5 mg/dL (0.2-1.3); Calcium 8.9 mg/dL (8.4-10.2); Creatinine 1 1.01 mg/dL (0.66-1.25); EST GLOMERULAR FILTRATION RATE 74.3 ML/MIN; Potassium 4.5 mmol/L (3.5-5.1); Total Protein 7.4 g/dL (6.3-8.2)
[2024-02-07] MEDS ORDERED: Sterile H2O 10 ml IJ ONE (15:36)
[2024-02-07] MEDS ORDERED: Zofran 4 MG/2 ML VIAL ONE (15:36)
[2024-02-07] MEDS ORDERED: solu-MEDROL ONE (15:37)
[2024-02-07] MEDS ORDERED: Hydromorphone 1 mg/ml Injection ONE (15:37)
--- NOTE | 2024-02-07 15:38 | XRAY ---
Indication: Pain. Multiple contiguous axial images obtained through the left knee. Sagittal and coronal reformatted images obtained. Comparison: None Left knee articulation appears anatomic. Osseous structures demineralized consistent with patient's age. Mild medial joint space narrowing with subcortical sclerosis and tiny cyst. Incidental tiny fabella posterior to lateral condyle. No acute fracture, suspicious bony lesions, or osseous destructive process. No abnormal effusion. Remaining visualized noncontrasted soft tissues demonstrates mild/moderate anterior lateral subcutaneous soft tissue swelling/edema and mild scattered arteriosclerotic calcifications. Impression: 1. Nonspecific anterolateral subcutaneous soft tissue swelling/edema. 2. Chronic findings including osteopenia, degenerative changes, and arteriosclerotic disease. 3. Remaining CT left knee is negative.
[2024-02-07] MEDS: Hydromorphone 1 mg/ml Injection IV ONE (15:44)
[2024-02-07] MEDS: Zofran 4 MG/2 ML VIAL IV ONE (15:45)
[2024-02-07] MEDS: solu-MEDROL 125 MG, Sterile H2O 10 ml 2 ML IV ONE (15:47)
[2024-02-07] MEDS: Norflex 60 MG/2 ML IV ONE (15:56)
[2024-02-07] MEDS ORDERED: PERCOCET TABLET 5/325MG ONE (21:32)
[2024-02-07] MEDS: PERCOCET TABLET 5/325MG PO STA ×2 (21:37→21:39)
[2024-02-07 22:26] VITALS: BP 128/79; PULSE 114; RESP 20; O2SAT 91
== END 2024-02-07 22:30 | disposition home or self-care (01) ==
LOC: ED 12:21
DX: M25.562 Pain in left knee (principal); R22.43 Localized swelling, mass and lump, lower limb, bilateral; I10 Essential (primary) hypertension; E78.5 Hyperlipidemia, unspecified; Z79.891 Long term (current) use of opiate analgesic; Z79.52 Long term (current) use of systemic steroids; Z79.899 Other long term (current) drug therapy
CPT/HCPCS: 36000; 36415; 73700; 80053; 83880; 85025; 93970; 96374; 96375; 99284; J1170; J2405; J2919; A9270-GY

== ENCOUNTER 2024-07-30 11:41 | Day surgery (SDC) | payer OTHER ==
[2024-07-30] MEDS ORDERED: Depo-Medrol 40 MG/ML IM ONE (11:42)
[2024-07-30] MEDS ORDERED: Sodium Chloride 0.9(Preservative Free) 10 ML IJ ONE (11:42)
[2024-07-30] MEDS ORDERED: DIPRIVAN 200 MG/20 ML IV ONE (13:27)
--- NOTE | 2024-07-30 15:03 | XRAY ---
Indication: Caudal RENAN. Intraoperative fluoroscopy provided for 23 seconds. 2 digital spot image submitted for interpretation demonstrates caudal needle tip projecting mid sacrum. Small amount of contrast injected for needle tip placement. Correlate with intraoperative findings/report.
--- NOTE | 2024-07-30 16:44 | XRAY ---
23 seconds of fluoroscopy was used in surgery for a caudal RENAN.
== END 2024-07-30 13:53 | disposition home or self-care (01) ==
LOC: SDC-PAIN 11:41
PROVIDERS: ATTEND Psychiatry & Neurology Pain Medicine
DX: M54.16 Radiculopathy, lumbar region (principal)
CPT/HCPCS: 62323; 72220; 77003; J2704; Q9966

== ENCOUNTER 2025-06-23 10:29 | Day surgery (SDC) | payer OTHER ==
[2025-06-23] MEDS ORDERED: methylPREDNISolone acetate IM ONE (10:30)
[2025-06-23] MEDS ORDERED: Sodium Chloride 0.9(Preservative Free) 10 ML IJ ONE (10:30)
[2025-06-23] MEDS ORDERED: propofoL IV ONE (12:04)
[2025-06-23] MEDS ORDERED: Lactated Ringers 1,000 ML IV ONE (12:41)
--- NOTE | 2025-06-23 12:55 | XRAY ---
Indication: Caudal RENAN. Intraoperative fluoroscopy provided for 15 seconds. 2 digital spot images submitted for interpretation demonstrates caudal needle tip projecting mid sacrum. Small amount of contrast injected for needle tip placement. Correlate with intraoperative findings/report.
--- NOTE | 2025-06-23 12:56 | XRAY ---
15 seconds of fluoroscopy was used in surgery for a caudal RENAN.
== END 2025-06-23 12:40 | disposition home or self-care (01) ==
LOC: SDC-PAIN 10:29
PROVIDERS: ATTEND Psychiatry & Neurology Pain Medicine
DX: M54.16 Radiculopathy, lumbar region (principal)

== ENCOUNTER 2025-08-12 09:44 | Day surgery (SDC) | payer OTHER ==
[2025-08-12] MEDS ORDERED: LIDOCAINE HCL 2% 100 MG/5 ML IJ ONE (09:45)
[2025-08-12] MEDS ORDERED: methylPREDNISolone acetate IM ONE (09:45)
[2025-08-12] MEDS ORDERED: Lactated Ringers 1,000 ML IV ONE (11:04)
[2025-08-12] MEDS ORDERED: propofoL IV ONE (11:10)
--- NOTE | 2025-08-12 12:05 | XRAY ---
Indication: Bilateral L1-L3 MBB. Intraoperative fluoroscopy provided for 17 seconds. Single digital spot images submitted for interpretation demonstrates posterior needle tips projecting over expected left and right L1-L3 nerve roots. Correlate with intraoperative findings/report.
--- NOTE | 2025-08-12 16:59 | XRAY ---
17 seconds of fluoroscopy was used in surgery for a bilateral L1-L3 MBB.
== END 2025-08-12 11:45 | disposition home or self-care (01) ==
LOC: SDC-PAIN 09:44
PROVIDERS: ATTEND Psychiatry & Neurology Pain Medicine
DX: M47.817 Spondylosis without myelopathy or radiculopathy, lumbosacral region (principal)